=== PATIENT | female | born 1980 | race African-American/Black ===

== ENCOUNTER 2016-04-28 14:46 | Emergency (ER) | payer OTHER ==
[~2016-04-28] VITALS: Ht 170.2 cm; Wt 122.9 kg
[~2016-04-28 14:46] MED LIST: ALBUTEROL SULF8.5 GM INH; AUGMENTIN 875-1 EAC1 ORAL; CEPHALEXIN500 MG ORAL; CILOXAN 0.3% O1 DROP BOTH EYES; CLINDAMYCIN HC150 MG PO; GLUCOPHAGE500 MG PO; IBUPROFEN600 MG ORAL; IBUPROFEN600 MG PO; KEFLEX500 MG PO; LIDOCAINE VISCO20 ML PO; MOTRIN600 MG PO; NAPROXEN SODIU550 M1 ORAL; NORCO 5-325 TA1 EACH ORAL; NYSTATIN100000 UN1 ORAL; PENICILLIN V P500 MG ORAL; PREDNISONE20 MG ORAL; QVAR7.3 GM INH; TRAMADOL HCL50 MG ORAL; ULTRAM50 MG PO; ZOFRAN ODT4 MG ORAL
[2016-04-28] MEDS ORDERED: Ipratropium 0.02% Inh Soln 2.5ml UD HHN ONE (15:00)
[2016-04-28] MEDS ORDERED: Albuterol ud Inhalation HHN ONE (15:00)
[2016-04-28 15:30] VITALS: BP 120/77
[2016-04-28] MEDS ORDERED: ZITHROMAX250 MG ORAL (15:48)
[2016-04-28] MEDS ORDERED: ALBUTEROL2.5 MG/3 M INH (15:48)
[2016-04-28 15:55] VITALS: BP 120/77
--- NOTE | 2016-04-28 17:23 | Emergency Room Report ---
History of Present Illness General Chief Complaint: Flu Like Symptoms Present Illness HPI The patient is a 35-year-old female with a history of asthma presenting for shortness of breath, dry cough, and sore throat which began one week prior. The patient states that she has not taken any asthma medications recently because she has run out. The patient denies sick contacts or recent travel. The patient denies F, chills, hemoptysis, abd pain, rash, CP Allergies: Coded Allergies: METOPROLOL (Verified Allergy, Severe, rash, 11/18/13) TOMATO (Verified Allergy, Severe, Anaphylaxis, 12/25/11) IBUPROFEN (Verified Allergy, Intermediate, 02/15/16) Patient History Past Medical History: see triage record Pertinent Family History: none Reviewed Nursing Documentation: PMH: Agreed, PSxH: Agreed Nursing Documentation-PMH Hx Cardiac Problems: No Hx Hypertension: Yes Hx Pacemaker: No Hx Asthma: Yes Hx COPD: No Hx Diabetes: Yes Hx Cancer: No Hx Gastrointestinal Problems: No Hx Dialysis: No Hx Neurological Problems: Yes - bipolar Hx Cerebrovascular Accident: No Hx Seizures: No Review of Systems All Other Systems: negative except mentioned in HPI Physical Exam Vital Signs Date Time Temp Pulse Resp B/P Pulse Ox O2 Delivery O2 Flow Rate FiO2 04/28/16 14:51 97.9 97 20 120/77 98 Room Air Sp02 EP Interpretation: reviewed, normal General Appearance: no apparent distress, alert, GCS 15, non-toxic Head: normocephalic, atraumatic Eyes: bilateral eye PERRL, bilateral eye normal inspection ENT: hearing grossly normal, no angioedema, normal voice, tonsillar swelling, pharyngeal erythema, tonsillar exudate Neck: full range of motion, supple, supple/symm/no masses Respiratory: no respiratory distress, no retraction, no accessory muscle use, no wheezing, decreased breath sounds Cardiovascular #1: regular rate, rhythm, no edema Musculoskeletal: back normal, gait/station normal, normal range of motion, non- tender Neurologic: alert, oriented x3, responsive, motor strength/tone normal, sensory intact, speech normal Psychiatric: judgement/insight normal, memory normal, mood/affect normal, no suicidal/homicidal ideation Skin: normal color, no rash, warm/dry, well hydrated Lymphatic: no adenopathy Medical Decision Making PA Attestation Dr. Bassett is my supervising physician. Patient management was discussed with my supervising physician Diagnostic Impression: Primary Impression: Pharyngitis, acute Additional Impression: Asthma ER Course The patient is a 35-year-old female with a history of asthma presenting for shortness of breath, dry cough, and sore throat which began one week prior Differential diagnosis include but not limited to pharyngitis, sinusitis, AOM, asthma, bronchitis, PNA PE: Afebrile. No apparent distress HEENT: There is bilateral tonsillar erythema and edema. Uvula midline. Lungs: Decreased breath sounds bilaterally. No accessory muscle use. No respiratory distress. No wheezing The patient is given a breathing treatment and feels better. Lung sounds have increased. The patient will be discharged home with a prescription for azithromycin and a refill of medication for asthma. ER precautions are given Last Vital Signs Date Time Temp Pulse Resp B/P Pulse Ox O2 Delivery O2 Flow Rate FiO2 04/28/16 15:55 98.0 90 18 120/77 97 Room Air Status: improved Disposition: HOME, SELF-CARE Condition: Improved Scripts Albuterol Sulfate* (ALBUTEROL SULFATE HHN*) 2.5 Mg/3 Ml Vial.neb 3 ML INH Q6H Y for Shortness of Breath, #30 EA 0 Refills Prov: BRITTANY BARON 04/28/16 Azithromycin* (ZITHROMAX*) 250 Mg Tablet 250 MG ORAL DAILY, #6 TAB 0 Refills Take two tables once daily for 1 day, then one tablet once daily for 4 days. Prov: BRITTANY BARON 04/28/16 Patient Instructions: Asthma, Adult, Pharyngitis Additional Instructions: I discussed my findings with the patient. All questions and concerns have been answered. Treatment and medication compliance have been addressed. I advised the patient that they need to follow up with PMD in 3-5 days. Return to ED if pain remains or worsens, cough worsens or remains, you notice blood in your sputum, you notice wheezing, you experience a fever, or if needed for any reason. Patient verbalized understanding of discharge instructions. BRITTANY BARON Apr 28, 2016 17:23
== END 2016-04-28 15:55 | disposition home or self-care (01) ==
LOC: EMR 14:57
DX: J02.9 Acute pharyngitis, unspecified (principal); J45.909 Unspecified asthma, uncomplicated; Z88.8 Allergy status to other drugs, medicaments and biological substances; Z91.018 Allergy to other foods; I10 Essential (primary) hypertension; E11.9 Type 2 diabetes mellitus without complications; Z86.59 Personal history of other mental and behavioral disorders
CPT/HCPCS: 94640; 94664; 99284

== ENCOUNTER 2016-06-09 17:57 | Emergency (ER) | payer OTHER ==
[~2016-06-09] VITALS: Ht 170.2 cm; Wt 98.4 kg
[~2016-06-09 17:57] MED LIST changes: +ALBUTEROL2.5 MG/3 M INH; +ZITHROMAX250 MG ORAL
[2016-06-09 19:54] LABS: APPEARANCE,URINE CLEAR; KETONES,URINE NEGATIVE (NEGATIVE); LEUKOCYTE ESTERASE ,URINE 1+ (NEGATIVE); NITRITE,URINE NEGATIVE (NEGATIVE); PH,URINE 6.5 (4.5-8.0); PROTEIN,URINE NEGATIVE (NEGATIVE); UROBILINOGEN,URINE 1 MG/DL (0.0-1.0)
[2016-06-09 20:06] LABS: BACTERIA,URINE FEW /HPF; RBC,URINE 0-2 /HPF (0 - 2); SQUAMOUS EPITHELIAL CELL,UR FEW /LPF (NONE/OCC)
[2016-06-09] MEDS ORDERED: BACTRIM DS TAB1 EAC1 ORAL (20:17)
[2016-06-09] MEDS ORDERED: ALBUTEROL2.5 MG/3 M INH (20:17)
[2016-06-09] MEDS ORDERED: CEPHALEXIN500 MG ORAL (20:17)
[2016-06-09] MEDS ORDERED: PROAIR HFA8.5 GM INH (20:17)
[2016-06-09 20:30] VITALS: BP 130/90
--- NOTE | 2016-06-09 21:06 | Emergency Room Report ---
History of Present Illness General Chief Complaint: Female Urogenital Problems Source: Patient Present Illness [facility] The patient is a 35-year-old female presenting with dysuria and possible abscess. The patient states that she first noticed a bump which was tender this morning over the vagina. She also noticed dysuria and increased urinary frequency. Patient describes pain as a 10 out of 10 dull ache above the vagina. Pain does not radiate. Patient denies any other symptoms including N, V, F, chills, flank pain, hematuria, vaginal DC Allergies: Coded Allergies: METOPROLOL (Verified Allergy, Severe, rash, 11/18/13) TOMATO (Verified Allergy, Severe, Anaphylaxis, 12/25/11) IBUPROFEN (Verified Allergy, Intermediate, 02/15/16) Patient History Past Medical History: see triage record Pertinent Family History: none Last Menstrual Period: 05/12/16 Now: No Reviewed Nursing Documentation: PMH: Agreed, PSxH: Agreed Nursing Documentation-PMH Past Medical History: No History, Except For Hx Cardiac Problems: No Hx Hypertension: Yes Hx Pacemaker: No Hx Asthma: Yes Hx COPD: No Hx Diabetes: Yes Hx Cancer: No Hx Gastrointestinal Problems: No Hx Dialysis: No Hx Neurological Problems: Yes - bipolar Hx Cerebrovascular Accident: No Hx Seizures: No Review of Systems All Other Systems: negative except mentioned in HPI Physical Exam Vital Signs Date Time Temp Pulse Resp B/P Pulse Ox O2 Delivery O2 Flow Rate FiO2 06/09/16 18:28 98.2 90 16 130/90 100 Room Air Sp02 EP Interpretation: reviewed, normal General Appearance: no apparent distress, alert, GCS 15, non-toxic Head: normocephalic, atraumatic Eyes: bilateral eye PERRL, bilateral eye normal inspection ENT: hearing grossly normal, normal pharynx, no angioedema, normal voice Neck: full range of motion, supple/symm/no masses Respiratory: chest non-tender, lungs clear, normal breath sounds, no wheezing, speaking full sentences Gastrointestinal: normal bowel sounds, non tender, soft, non-distended, no guarding, no rebound Genitourinary: normal inspection, no CVA tenderness, ext genitalia/vag normal, other - 1cm indurated TTP lesion superior to vagina amongst pubic hair. Musculoskeletal: back normal, gait/station normal, normal range of motion, non- tender Neurologic: alert, oriented x3, responsive, motor strength/tone normal, sensory intact, speech normal Psychiatric: judgement/insight normal, memory normal, mood/affect normal, no suicidal/homicidal ideation Skin: normal color, no rash, warm/dry, well hydrated Lymphatic: no adenopathy Medical Decision Making PA Attestation Dr. Castillo is my supervising physician. Patient management was discussed with my supervising physician Diagnostic Impression: Primary Impression: Abscess Additional Impressions: Urinary tract infection Asthma ER Course The patient is a 35-year-old female presenting with dysuria and possible abscess. Differential diagnosis considered but not limited to: UTI, vaginitis, pyelonephritis, PID, abscess PE: Afebrile. No apparent distress Abdomen soft and nontender. Normal bowel sounds. No CVA tenderness. Genitourinary: External vagina normal. No edema. No discharge. There is a 1 cm indurated, raised lesion superior to vagina. Tender to palpation. Exam done with nurse in the room. Lungs are clear to auscultation bilaterally Urinalysis shows 1+ leukocyte esterase with white blood cells. The patient will be discharged home with a prescription for bactrim and keflex and is given refill of medication of albuterol Laboratory Tests Test 06/09/16 18:59 Urine Color Pale yellow Urine Appearance Clear Urine pH 6.5 (4.5-8.0) Urine Specific [place] 1.015 (1.005-1.035) Urine Protein Negative (NEGATIVE) Urine Glucose (UA) 4+ (NEGATIVE) H Urine Ketones Negative (NEGATIVE) Urine Occult Blood 1+ (NEGATIVE) H Urine Nitrite Negative (NEGATIVE) Urine Bilirubin Negative (NEGATIVE) Urine Urobilinogen 1 MG/DL (0.0-1.0) H Urine Leukocyte Esterase 1+ (NEGATIVE) H Urine RBC 0-2 /HPF (0 - 2) Urine WBC 2-4 /HPF (0 - 2) Urine Squamous Epithelial Cells Few /LPF (NONE/OCC) Urine Bacteria Few /HPF (NONE) Urine HCG, Qualitative Negative Lab Results Impression 1+ leukocyte esterase with 2-4 white blood cells. Negative Last Vital Signs Date Time Temp Pulse Resp B/P Pulse Ox O2 Delivery O2 Flow Rate FiO2 06/09/16 20:30 98.2 85 16 130/90 100 Room Air Status: improved Disposition: HOME, SELF-CARE Condition: Improved Scripts Albuterol Sulfate* (ALBUTEROL SULFATE HHN*) 2.5 Mg/3 Ml Vial.neb 3 ML INH Q6H Y for Shortness of Breath, #30 EA 0 Refills Prov: BRITTANY BARON P.A. 06/09/16 Albuterol Sulfate* (PROAIR HFA*) 8.5 Gm Hfa.aer.ad 2 PUFFS INH Q6H, #8.5 GM 0 Refills Prov: BRITTANY BARON.A. 06/09/16 Trimethoprim/Sulfamethoxazole 160/800* (BACTRIM DS TABLET*) 1 Each Tablet 1 TAB ORAL TWICE A DAY, #14 TAB Prov: BRITTANY BARON P.A. 06/09/16 Cephalexin* (KEFLEX*) 500 Mg Capsule 500 MG ORAL EVERY 6 HOURS, #28 CAP Prov: BRITTANY BARON P.A. 06/09/16 Patient Instructions: Abscess, Urinary Tract Infection Additional Instructions: I discussed my findings with the patient. All questions and concerns have been answered. Treatment and medication compliance have been addressed. I advised the patient that they need to follow up with PMD in 3-5 days. Return to ED if symptoms worsen, new symptoms arise, or if needed for any reason. Patient verbalized understanding of discharge instructions. BRITTANY BARON Jun 09, 2016 21:06
== END 2016-06-09 20:30 | disposition home or self-care (01) ==
LOC: EMR 18:42
DX: N76.0 Acute vaginitis (principal); N39.0 Urinary tract infection, site not specified; J45.909 Unspecified asthma, uncomplicated; R30.0 Dysuria; R35.0 Frequency of micturition; R10.2 Pelvic and perineal pain; Z88.8 Allergy status to other drugs, medicaments and biological substances; Z88.6 Allergy status to analgesic agent; Z91.018 Allergy to other foods; I10 Essential (primary) hypertension; E11.9 Type 2 diabetes mellitus without complications; F31.9 Bipolar disorder, unspecified
CPT/HCPCS: 81003; 81025; 99284

== ENCOUNTER 2016-08-29 20:51 | Emergency (ER) | payer OTHER ==
[~2016-08-29] VITALS: Ht 170.2 cm; Wt 88.5 kg
[~2016-08-29 20:51] MED LIST changes: +BACTRIM DS TAB1 EAC1 ORAL; +PROAIR HFA8.5 GM INH
[2016-08-29 21:00] VITALS: BP 120/75
[2016-08-29] MEDS ORDERED: NKM (21:02)
[2016-08-29] MEDS ORDERED: ALBUTEROL SULF8.5 GM INH (21:19)
[2016-08-29] MEDS ORDERED: ALBUTEROL2.5 MG/3 M HHN (21:19)
[2016-08-29] MEDS ORDERED: ACETAMINOPHEN-1 EAC1 ORAL (21:19)
[2016-08-29] MEDS ORDERED: ADVAIR 100-501 EACH INH (21:19)
--- NOTE | 2016-08-29 21:19 | Emergency Room Report ---
History of Present Illness General Chief Complaint: Dyspnea/Respdistress Source: Patient Present Illness HPI Is a 36-year-old female with a history of asthma. She presents with chief complaint needing refills her medication. She does not go to her primary care Dr. Said she doesn't have one. Said that she too busy working. Out of her asthma medication. No fever chills but no nausea vomiting. Also complaining of neck and back pain. Is a chronic issue. Pain is 10 out of 10. No nausea no vomiting. No fever chills or Allergies: Coded Allergies: METOPROLOL (Verified Allergy, Severe, rash, 11/18/13) TOMATO (Verified Allergy, Severe, Anaphylaxis, 12/25/11) IBUPROFEN (Verified Allergy, Intermediate, 02/15/16) GRASS POLLEN (Verified Allergy, Unknown, 08/29/16) Patient History Past Medical History: see triage record, old chart reviewed, asthma Past Surgical History: other Pertinent Family History: none Social History: Denies: smoking Last Menstrual Period: july 2016 Now: No Immunizations: other Reviewed Nursing Documentation: PMH: Agreed, PSxH: Agreed Nursing Documentation-PMH Hx Cardiac Problems: No Hx Hypertension: Yes Hx Pacemaker: No Hx Asthma: Yes Hx COPD: No Hx Diabetes: No Hx Cancer: No Hx Gastrointestinal Problems: No Hx Dialysis: No Hx Neurological Problems: Yes - bipolar Hx Cerebrovascular Accident: No Hx Seizures: No Review of Systems Eye: Denies: blurred vision, eye pain ENT: Denies: ear pain, nose congestion, throat swelling Respiratory: Denies: cough, shortness of breath Cardiovascular: Denies: chest pain, palpitations Gastrointestinal: Denies: abdominal pain, diarrhea, nausea, vomiting Musculoskeletal: Denies: back pain, joint pain Skin: Denies: rash Neurological: Denies: headache, numbness Endocrine: Denies: increased thirst, increased urine Hematologic/Lymphatic: Denies: easy bruising All Other Systems: negative except mentioned in HPI Physical Exam Vital Signs Date Time Temp Pulse Resp B/P Pulse Ox O2 Delivery O2 Flow Rate FiO2 08/29/16 20:57 98.1 87 16 120/75 95 vitals normal Sp02 EP Interpretation: reviewed, normal General Appearance: well appearing, no apparent distress, alert Head: normocephalic, atraumatic Eyes: bilateral eye EOMI, bilateral eye PERRL ENT: hearing grossly normal, normal pharynx Neck: full range of motion, supple, no meningismus Respiratory: chest non-tender, lungs clear, normal breath sounds Cardiovascular #1: regular rate, rhythm, no murmur Gastrointestinal: normal bowel sounds, non tender, no mass, no organomegaly, no bruit, non-distended Musculoskeletal: back normal, gait/station normal, normal range of motion Psychiatric: mood/affect normal Skin: warm/dry Medical Decision Making Diagnostic Impression: Primary Impression: Medication refill Additional Impression: Asthma Qualified Codes: J45.909 - Unspecified asthma, uncomplicated ER Course Patient presents with needing asthma medication refill. No wheezing here. We' ll discharge home. Last Vital Signs Date Time Temp Pulse Resp B/P Pulse Ox O2 Delivery O2 Flow Rate FiO2 08/29/16 20:57 98.1 87 16 120/75 95 Status: unchanged Disposition: HOME, SELF-CARE Condition: Stable Scripts Acetaminophen With Codeine (T#3) (TYLENOL #3 TAB*) Y Tab 1 TAB ORAL Q8H Y for For Pain, #15 TAB Prov: JOSE BARBOZA M.D. 08/29/16 Albuterol Sulfate* (ALBUTEROL SULFATE HHN*) 2.5 Mg/3 Ml Vial.neb 2.5 MG HHN Q4H Y for Shortness of Breath, #25 VIAL Prov: JOSE BARBOZA M.D. 08/29/16 Albuterol Sulfate* (ALBUTEROL SULFATE MDI*) 8.5 Gm Hfa.aer.ad 2 PUFF INH Q4H Y for cough/wheezing, #1 EA 0 Refills Prov: JOSE BARBOZA M.D. 08/29/16 Fluticasone/Salmeterol (Advair 100-50 Diskus) 1 Each Blst.w.dev 1 PUFF INH TWICE A DAY, #1 EA Prov: JOSE BARBOZA M.D. 08/29/16 Additional Instructions: Follow up with your doctor or medical clinic in a week. Return if worse. JOSE BARBOZA M.D. August 29, 2016 21:19
[2016-08-29 21:25] VITALS: BP 120/75
== END 2016-08-29 21:25 | disposition home or self-care (01) ==
LOC: EMR 21:12
DX: J45.909 Unspecified asthma, uncomplicated (principal); Z88.8 Allergy status to other drugs, medicaments and biological substances; Z88.6 Allergy status to analgesic agent; Z91.018 Allergy to other foods; I10 Essential (primary) hypertension; F31.9 Bipolar disorder, unspecified
CPT/HCPCS: 99284

== ENCOUNTER 2016-11-16 09:15 | Emergency (ER) | payer MEDICAID, OTHER ==
[~2016-11-16] VITALS: Ht 170.2 cm; Wt 112.0 kg
[~2016-11-16 09:15] MED LIST changes: +ACETAMINOPHEN-1 EAC1 ORAL; +ADVAIR 100-501 EACH INH; +ALBUTEROL2.5 MG/3 M HHN; +NKM
[2016-11-16] MEDS ORDERED: NORCO 5-325 TA1 EACH ORAL (09:49)
[2016-11-16] MEDS ORDERED: KEFLEX500 MG ORAL (09:49)
[2016-11-16] MEDS ORDERED: BACTRIM DS TAB1 EAC1 ORAL (09:49)
[2016-11-16 09:55] VITALS: BP 127/78
--- NOTE | 2016-11-16 10:01 | Emergency Room Report ---
History of Present Illness General Chief Complaint: Skin Rash/Abscess Source: Patient Present Illness HPI Patient presents with complaints of possible insect bite to the left upper shoulder This happened this morning Patient woke up with the discomfort there was some redness as well Pain is worse with touch Rates the pain as 8/10 Denies any fevers or chills denies any discomfort with the joint of the shoulder Denies any neuropathy distally Denies any neck pain or photophobia Allergies: Coded Allergies: METOPROLOL (Verified Allergy, Severe, rash, 11/18/13) TOMATO (Verified Allergy, Severe, Anaphylaxis, 12/25/11) IBUPROFEN (Verified Allergy, Intermediate, 02/15/16) GRASS POLLEN (Verified Allergy, Unknown, 08/29/16) Patient History Past Medical History: see triage record Pertinent Family History: none Reviewed Nursing Documentation: PMH: Agreed, PSxH: Agreed Nursing Documentation-PMH Hx Cardiac Problems: No Hx Hypertension: Yes Hx Pacemaker: No Hx Asthma: Yes Hx COPD: No Hx Diabetes: No Hx Cancer: No Hx Gastrointestinal Problems: No Hx Dialysis: No Hx Neurological Problems: Yes - bipolar Hx Cerebrovascular Accident: No Hx Seizures: No Review of Systems All Other Systems: negative except mentioned in HPI Physical Exam Vital Signs Date Time Temp Pulse Resp B/P Pulse Ox O2 Delivery O2 Flow Rate FiO2 11/16/16 09:18 97.5 72 20 118/81 100 Room Air Sp02 EP Interpretation: reviewed, normal General Appearance: well appearing, no apparent distress Head: normocephalic, atraumatic Eyes: bilateral eye EOMI, bilateral eye PERRL ENT: normal pharynx, no angioedema Neck: supple Respiratory: lungs clear Cardiovascular #1: regular rate, rhythm, no edema Musculoskeletal: normal inspection, back normal Neurologic: alert, oriented x3, responsive Skin: other - Small area approximately half a half a centimeter left upper chest just medial to the shoulder of mild erythema. No obvious fluctuance, no obvious streaking Lymphatic: no adenopathy Medical Decision Making Diagnostic Impression: Primary Impression: insect bite Additional Impression: cellulitis ER Course Patient's findings appear to be likely in line with folliculitis/insect bite with likely early signs of infection No obvious areas of abscess formation In the presentation is fairly early in the pathology Patient is placed on oral antibiotics initially Requesting [place] for pain Patient CURES does reveal previous [place] medication from dentist, and here However given the patient's discomfort she was prescribed medicine for close outpatient followup Patient is also allergic to Motrin Last Vital Signs Date Time Temp Pulse Resp B/P Pulse Ox O2 Delivery O2 Flow Rate FiO2 11/16/16 09:55 76 18 127/78 97 Room Air 11/16/16 09:55 98.0 Status: unchanged Disposition: HOME, SELF-CARE Condition: Stable Scripts Hydrocodone Bit/Acetaminophen 5-325* (NORCO 5-325*) 1 Each Tablet 1 TAB ORAL Q12HR Y for For Pain, #10 TAB 0 Refills Prov: IBRAHIMA SILVA D.O. 11/16/16 Trimethoprim/Sulfamethoxazole 160/800* (BACTRIM DS TABLET*) 1 Each Tablet 1 TAB ORAL Q12H, #14 TAB 0 Refills Prov: IBRAHIMA SILVA D.O. 11/16/16 Cephalexin* (KEFLEX*) 500 Mg Capsule 500 MG ORAL Q6H, #28 CAP 0 Refills Prov: IBRAHIMA SILVA D.O. 11/16/16 Referrals: [employer] [facility],REFERRIN Patient Instructions: Cellulitis, [id number], Insect Bite, [id number] Additional Instructions: Patient is provided with the discharge instructions notified to follow up with primary doctor in the next 2-3 days otherwise return to the er with any worsening symptoms. Please note that this report is being documented using [employer] ([employer]) technology. This can lead to erroneous entry secondary to incorrect interpretation by the dictating instrument. IBRAHIMA SILVA D.O. Nov 16, 2016 10:01
== END 2016-11-16 10:00 | disposition home or self-care (01) ==
LOC: EMR 09:45
DX: S40.262A Insect bite (nonvenomous) of left shoulder, initial encounter (principal); W57.XXXA Bitten or stung by nonvenomous insect and other nonvenomous arthropods, initial encounter; Y93.9 Activity, unspecified; Y92.9 Unspecified place or not applicable; L03.114 Cellulitis of left upper limb; I10 Essential (primary) hypertension; Z88.6 Allergy status to analgesic agent; Z91.018 Allergy to other foods
CPT/HCPCS: 99284

== ENCOUNTER 2016-12-04 20:36 | Emergency (ER) | payer MEDICAID ==
[~2016-12-04] VITALS: Ht 170.2 cm; Wt 122.5 kg
[~2016-12-04 20:36] MED LIST changes: +KEFLEX500 MG ORAL
[2016-12-04] MEDS ORDERED: Famotidine 20 MG/ 2ML VIAL IVP ONE (20:45)
[2016-12-04] MEDS ORDERED: Morphine Sulfate 4mg/ml Inj IVP ONE (20:45)
[2016-12-04 21:00] VITALS: BP 143/98
[2016-12-04 21:41] LABS: ALANINE AMINOTRANSFERASE 20 U/L (3-33); ALBUMIN/GLOBULIN RATIO 0.9 (1.0-2.7); ANION GAP 12 (5-15); ASPARTATE AMINO TRANSFERASE 15 U/L (5-40); CALCIUM 9.3 mg/dL (8.6-10.2); CARBON DIOXIDE 29 mEQ/L (20-30); CHLORIDE 100 mEQ/L (98-107); CREATININE 0.9 mg/dL (0.5-0.9); GLOMERULAR FILTRATION RATE > 60 mL/min (>60); HEMOLYSIS 3; LIPASE 27 U/L (< 60); POTASSIUM 4.2 mEQ/L (3.4-4.9); SODIUM 141 mEQ/L (135-145); TOTAL PROTEIN 8.1 g/dL (6.6-8.7)
[2016-12-04 21:43] LABS: BASOPHILS % (AUTO) 1.8 % (0.0-2.0); EOSINOPHILS % (AUTO) 0.2 % (0.0-3.0); LYMPHOCYTES % (AUTO) 19.5 % (20.0-45.0); MEAN CORPUSCULAR HEMOGLOBIN 24.3 PG (27.0-31.0); MEAN CORPUSCULAR HGB CONC 31.3 G/DL (32.0-36.0); MEAN CORPUSCULAR VOLUME 78 FL (80-99); MEAN PLATELET VOLUME 12.2 FL (6.5-10.1); MONOCYTES % (AUTO) 5.8 % (1.0-10.0); NEUTROPHILS % (AUTO) 72.7 % (45.0-75.0); PLATELET COUNT 194 K/UL (150-450); RED BLOOD COUNT 6.24 M/UL (4.20-5.40); RED CELL DISTRIBUTION WIDTH 12.7 % (11.6-14.8); WHITE BLOOD COUNT 11.8 K/UL (4.8-10.8)
[2016-12-04 21:44] LABS: KETONES,URINE 1+ (NEGATIVE); LEUKOCYTE ESTERASE ,URINE 3+ (NEGATIVE); NITRITE,URINE POSITIVE (NEGATIVE); PH,URINE 6 (4.5-8.0); PROTEIN,URINE 3+ (NEGATIVE); UROBILINOGEN,URINE NORMAL MG/DL (0.0-1.0)
[2016-12-04 21:46] LABS: APPEARANCE,URINE SLIGHTLY CLOUDY
[2016-12-04 21:57] LABS: AMORPHOUS SEDIMENT,UR FEW /LPF; BACTERIA,URINE MODERATE /HPF; SQUAMOUS EPITHELIAL CELL,UR MODERATE /LPF (NONE/OCC)
[2016-12-04] MEDS ORDERED: Hydromorphone 0.5mg/0.5ml inj IVP ONE (22:15)
[2016-12-04 23:05] VITALS: BP 138/87
--- NOTE | 2016-12-04 23:12 | Emergency Room Report ---
History of Present Illness General Chief Complaint: Abdominal Pain Source: Patient, EMS (Madan Skinner M.D.) Present Illness HPI Patient presents with abdominal pain right flank pain for 2 days. She's been vomiting. Initially was food that was mild and then bile next was some red specks what she thinks might be blood. She's also had diarrhea which is orange in color. She believes this is food poisoning from [place] food that she ate. She's never had kidney stones. She's not had previous surgery in the past. Pain is 10/10 R flank radiating to RLQ. No fevers, but feverish. No URI sy. No dysuria. No rashes. No wheezing. Asthma, HTN and Bipolar (Madan Skinner M.D.) Allergies: Coded Allergies: METOPROLOL (Verified Allergy, Severe, rash, 11/18/13) TOMATO (Verified Allergy, Severe, Anaphylaxis, 12/25/11) IBUPROFEN (Verified Allergy, Intermediate, 02/15/16) GRASS POLLEN (Verified Allergy, Unknown, 08/29/16) Patient History Past Medical History: see triage record Social History: Denies: smoking Social History Narrative with friend Last Menstrual Period: LAST MONTH Reviewed Nursing Documentation: PMH: Agreed, PSxH: Agreed (Madan Skinner M.D.) Nursing Documentation-PMH Hx Cardiac Problems: No Hx Hypertension: Yes Hx Pacemaker: No Hx Asthma: Yes Hx COPD: No Hx Diabetes: Yes Hx Cancer: No Hx Gastrointestinal Problems: No Hx Dialysis: No History Of Psychiatric Problem: Yes Hx Neurological Problems: Yes - bipolar Hx Cerebrovascular Accident: No Hx Seizures: No (Madan Skinner M.D.) Review of Systems All Other Systems: negative except mentioned in HPI (Madan Skinner M.D.) Physical Exam Vital Signs Date Time Temp Pulse Resp B/P (MAP) Pulse Ox O2 Delivery O2 Flow Rate FiO2 12/04/16 20:41 98.1 94 18 148/90 98 Room Air Sp02 EP Interpretation: reviewed, normal General Appearance: well appearing, no apparent distress, GCS 15 Head: normocephalic Eyes: bilateral eye normal inspection, bilateral eye PERRL ENT: moist mucus membranes Neck: supple Respiratory: lungs clear, normal breath sounds Cardiovascular #1: regular rate, rhythm Cardiovascular #2: 2+ radial (R) Gastrointestinal: normal inspection, normal bowel sounds, no mass, non- distended, no rebound, guarding - minimal epigastric and R flank anteriorly, tenderness Genitourinary: no CVA tenderness Musculoskeletal: back normal, gait/station normal, normal range of motion Neurologic: alert, oriented x3, grossly normal Psychiatric: other - slightly glib Skin: normal inspection, warm/dry, other - hyperpigmentation face (Madan Skinner M.D.) Medical Decision Making Diagnostic Impression: Primary Impression: Abdominal pain Qualified Codes: R10.84 - Generalized abdominal pain Additional Impressions: Flank pain UTI (urinary tract infection) Qualified Codes: N30.00 - Acute cystitis without hematuria ER Course Patient presents with flank pain. Differential includes arthritis, renal stone , gastroenteritis, appendicitis amongst others. She's obese and exam is difficult. She states she's been vomiting blood. Emergent evaluation is undertaken with labs. Patient given IV hydration and analgesia. Labs are significant for mildly elevated white count and some pyuria. Patient is covered with antibiotics. On repeat exam she states that the 4 mg of morphine didn't touch her. Given a dose of Dilaudid and a CT of the abdomen is ordered. Patient sleeping after dilaudid. The patient signed out to Dr. Barboza. Laboratory Tests Test 12/04/16 21:00 White Blood Count 11.8 K/UL (4.8-10.8) H Red Blood Count 6.24 M/UL (4.20-5.40) H Hemoglobin 15.2 G/DL (12.0-16.0) Hematocrit 48.4 % (37.0-47.0) H Mean Corpuscular Volume 78 FL (80-99) L Mean Corpuscular Hemoglobin 24.3 PG (27.0-31.0) L Mean Corpuscular Hemoglobin Concent 31.3 G/DL (32.0-36.0) L Red Cell Distribution Width 12.7 % (11.6-14.8) Platelet Count 194 K/UL (150-450) Mean Platelet Volume 12.2 FL (6.5-10.1) H Neutrophils (%) (Auto) 72.7 % (45.0-75.0) Lymphocytes (%) (Auto) 19.5 % (20.0-45.0) L Monocytes (%) (Auto) 5.8 % (1.0-10.0) Eosinophils (%) (Auto) 0.2 % (0.0-3.0) Basophils (%) (Auto) 1.8 % (0.0-2.0) Urine Color Pale yellow Urine Appearance Slightly cloudy Urine pH 6 (4.5-8.0) Urine Specific [place] 1.015 (1.005-1.035) Urine Protein 3+ (NEGATIVE) H Urine Glucose (UA) Negative (NEGATIVE) Urine Ketones 1+ (NEGATIVE) H Urine Occult Blood 5+ (NEGATIVE) H Urine Nitrite Positive (NEGATIVE) H Urine Bilirubin Negative (NEGATIVE) Urine Urobilinogen Normal MG/DL (0.0-1.0) Urine Leukocyte Esterase 3+ (NEGATIVE) H Urine RBC 10-15 /HPF (0 - 2) H Urine WBC 5-10 /HPF (0 - 2) H Urine Squamous Epithelial Cells Moderate /LPF (NONE/OCC) H Urine Amorphous Sediment Few /LPF (NONE) H Urine Bacteria Moderate /HPF (NONE) H Urine HCG, Qualitative Negative Sodium Level 141 mEQ/L (135-145) Potassium Level 4.2 mEQ/L (3.4-4.9) Chloride Level 100 mEQ/L (98-107) Carbon Dioxide Level 29 mEQ/L (20-30) Anion Gap 12 (5-15) Blood Urea Nitrogen 12 mg/dL (7-23) Creatinine 0.9 mg/dL (0.5-0.9) Estimate Glomerular Filtration Rate > 60 mL/min (>60) Glucose Level 169 mg/dL (74-106) H Calcium Level 9.3 mg/dL (8.6-10.2) Total Bilirubin 0.7 mg/dL (0.0-1.2) Aspartate Amino Transferase (AST) 15 U/L (5-40) Alanine Aminotransferase (ALT) 20 U/L (3-33) Alkaline Phosphatase 74 U/L (35-104) Total Protein 8.1 g/dL (6.6-8.7) Albumin 4.0 g/dL (3.5-5.2) Globulin 4.1 g/dL Albumin/Globulin Ratio 0.9 (1.0-2.7) L Lipase 27 U/L (< 60) (Madan Skinner M.D.) ER Course Patient signed out to me. CT scan pending. CT unremarkable. We'll discharge home. (JOSE BARBOZA M.D.) CT/MRI/US Diagnostic Results CT/MRI/US Diagnostic Results : Imaging Test Ordered: CT a/p Impression CT ABDOMEN & PELVIS: Compared to CT abdomen and pelvis 09/27/2011 Abnormal wall thickening and enhancement of the bilateral renal pelves, bilateral ureters, and urinary bladder, with adjacent edema, likely due to urinary tract infection. Mild bilateral hydronephrosis and hydroureter is likely related. No evidence of radiopaque obstructing ureteral calculus. Multiple small retroperitoneal and pelvic lymph nodes. There are a few small scattered pulmonary nodules. Small pericardial effusion measuring approximately 6 millimeters in thickness. Hepatic steatosis. Moderate hepatomegaly. No CT evidence of acute cholecystitis or acute pancreatitis. No bowel obstruction. Unremarkable appendix. No free fluid. No free air. Radiologist: Mallorie Singh M.D. (JOSE BARBOZA M.D.) Last Vital Signs Date Time Temp Pulse Resp B/P (MAP) Pulse Ox O2 Delivery O2 Flow Rate FiO2 12/05/16 02:15 98.2 87 18 140/87 100 Room Air Status: improved (Madan Skinner M.D.) Status: improved (JOSE BARBOZA M.D.) Disposition: HOME, SELF-CARE Condition: Improved Scripts Nitrofurantoin Monohyd/M-Cryst* (MACROBID 100 MG*) 100 Mg Capsule 100 MG ORAL EVERY 12 HOURS, #14 CAP Prov: Madan Skinner M.D. 12/04/16 Tramadol Hcl* (ULTRAM*) 50 Mg Tablet 50 MG ORAL Q6H Y for For Pain, #12 TAB 0 Refills Prov: Madan Skinner M.D. 12/04/16 Ondansetron Odt* (ZOFRAN ODT*) 4 Mg Tab.rapdis 4 MG ORAL Q8H Y for Nausea & Vomiting, #6 TAB 1 Refill Prov: Madan Skinner M.D. 12/04/16 Famotidine (PEPCID) 20 Mg Tablet 20 MG ORAL DAILY, #14 TAB 0 Refills Prov: Madan Skinner M.D. 12/04/16 Referrals: [facility],REFERRING (PCP) Madan Skinner M.D. Dec 04, 2016 23:12 JOSE BARBOZA M.D. Dec 05, 2016 02:04
[2016-12-04] MEDS ORDERED: PEPCID20 MG ORAL (23:16)
[2016-12-04] MEDS ORDERED: ZOFRAN ODT4 MG ORAL (23:16)
[2016-12-04] MEDS ORDERED: TRAMADOL HCL50 MG ORAL (23:16)
[2016-12-04] MEDS ORDERED: NITROFURANTOIN100 M2 ORAL (23:17)
[2016-12-05 01:10] VITALS: BP 139/84
[2016-12-05 02:00] VITALS: BP 140/87
[2016-12-05 02:15] VITALS: BP 140/87
--- NOTE | 2016-12-05 09:57 | Diagnostic Imaging Report ---
Indication: Abdominal pain Technique: Continuous helical transaxial imaging of the abdomen and pelvis was obtained from the lung bases to the pubic symphysis during intravenous contrast administration. Coronal 2-D reformats were also obtained. Study obtained in a Siemens sensation [address] Total Dose length Product (DLP): [address] Dose Index Volume (CTDIvol): 20 mGy Comparison: 6.712 Findings: There is a small hiatal hernia. Small pericardial effusion noted. The liver is prominent and hypodense. There is perinephric and periureteral stranding and mild bilateral hydronephrosis is noted. Consider pyelonephritis. No definite renal stones obstructing or nonobstructing. Gallbladder is unremarkable. The pancreas and spleen appear unremarkable. There is no adrenal mass. Small nodes are seen in the retroperitoneum. The bladder wall is moderately thick. Uterus is unremarkable. Normal appendix noted. Impression: Bilateral hydronephrosis/perinephric stranding without evidence of an obstructing stone. Similar thickening of the urinary bladder wall noted. Findings could be on the basis of cystitis and toshia nephritis/pyelitis. Please correlate clinically. Fatty liver with hepatomegaly Hiatal hernia Small pericardial effusion Normal appendix [facility] has communicated the preliminary results to the Emergency Department. Their findings are largely concordant with this report. The CT scanner at [facility] is accredited by the [employer] and the scans are performed using dose optimization techniques as appropriate to a performed exam including Automatic Exposure control.
== END 2016-12-05 02:15 | disposition home or self-care (01) ==
LOC: EDUNIT# 20:36 → EDBD 20:36 → EMR 20:47
DX: R10.84 Generalized abdominal pain (principal); N30.00 Acute cystitis without hematuria; R19.7 Diarrhea, unspecified; I10 Essential (primary) hypertension; Z88.6 Allergy status to analgesic agent; Z88.8 Allergy status to other drugs, medicaments and biological substances; E11.9 Type 2 diabetes mellitus without complications; I31.3 Pericardial effusion (noninflammatory); K44.9 Diaphragmatic hernia without obstruction or gangrene; K76.0 Fatty (change of) liver, not elsewhere classified; N13.30 Unspecified hydronephrosis
CPT/HCPCS: 36415; 74177; 80053; 81003; 81025; 83690; 85025; 87086; 87181; 96361; 96374; 96375; 99284; J1170; J2270; J2405; Q9967; S0028

== ENCOUNTER 2016-12-06 00:36 | Inpatient (IN) | payer MEDICAID ==
[2016-12-06] VITALS (8 sets, daily range): BP systolic 119–155; BP diastolic 78–108
[~2016-12-06] VITALS: Ht 170.2 cm; Wt 117.9 kg
[~2016-12-06 00:36] MED LIST changes: +NITROFURANTOIN100 M2 ORAL; +PEPCID20 MG ORAL
[2016-12-06] MEDS ORDERED: cefTRIAXone 1 GM in NS 55 ML IVPB ONE (00:45)
[2016-12-06 01:42] LABS: BASOPHILS % (AUTO) 1.4 % (0.0-2.0); EOSINOPHILS % (AUTO) 0.6 % (0.0-3.0); LYMPHOCYTES % (AUTO) 25.4 % (20.0-45.0); MEAN CORPUSCULAR HEMOGLOBIN 23.7 PG (27.0-31.0); MEAN CORPUSCULAR HGB CONC 30.2 G/DL (32.0-36.0); MEAN CORPUSCULAR VOLUME 78 FL (80-99); MEAN PLATELET VOLUME 12.2 FL (6.5-10.1); NEUTROPHILS % (AUTO) 64.5 % (45.0-75.0); PLATELET COUNT 191 K/UL (150-450); RED BLOOD COUNT 6.22 M/UL (4.20-5.40); RED CELL DISTRIBUTION WIDTH 12.8 % (11.6-14.8); WHITE BLOOD COUNT 9.7 K/UL (4.8-10.8)
[2016-12-06] MEDS ORDERED: HYDROmorphone 1 MG, DiphenhydrAMINE 25 MG in NS 55 ML IV ONE (01:45)
[2016-12-06] MEDS ORDERED: LORazepam Inj 2mg/ml 1ml IV ONE (01:45)
[2016-12-06 01:56] LABS: ALANINE AMINOTRANSFERASE 17 U/L (3-33); ALBUMIN/GLOBULIN RATIO 0.9 (1.0-2.7); ANION GAP 10 (5-15); ASPARTATE AMINO TRANSFERASE 13 U/L (5-40); CALCIUM 9.1 mg/dL (8.6-10.2); CARBON DIOXIDE 29 mEQ/L (20-30); CHLORIDE 95 mEQ/L (98-107); CREATININE 0.9 mg/dL (0.5-0.9); GLOMERULAR FILTRATION RATE > 60 mL/min (>60); HEMOLYSIS 0; POTASSIUM 3.9 mEQ/L (3.4-4.9); SODIUM 134 mEQ/L (135-145); TOTAL PROTEIN 8.1 g/dL (6.6-8.7)
[2016-12-06] MEDS ORDERED: DiphenhydrAMINE 50mg/ml Inj ONE (01:59)
[2016-12-06] MEDS ORDERED: HYDROmorphone 1mg/ml Carpuject ONE (01:59)
--- NOTE | 2016-12-06 05:31 | Emergency Room Report ---
History of Present Illness General Chief Complaint: Abdominal Pain Source: Patient Present Illness HPI Patient presents with complaints of diffuse abdominal pain nausea vomiting Patient appears to have been here yesterday with UTI Patient a CAT scan imaging yesterday which did not show any acute pathology Patient reports 01/09 pain diffuse Denies any flank pain Denies any fevers or chills Denies any diarrhea she has had nausea and vomiting however Allergies: Coded Allergies: METOPROLOL (Verified Allergy, Severe, rash, 11/18/13) TOMATO (Verified Allergy, Severe, Anaphylaxis, 12/25/11) IBUPROFEN (Verified Allergy, Intermediate, 02/15/16) GRASS POLLEN (Verified Allergy, Unknown, 08/29/16) Patient History Past Medical History: see triage record Pertinent Family History: none Last Menstrual Period: last month Reviewed Nursing Documentation: PMH: Agreed, PSxH: Agreed Nursing Documentation-PMH Hx Cardiac Problems: No Hx Hypertension: Yes Hx Pacemaker: No Hx Asthma: Yes Hx COPD: No Hx Diabetes: Yes Hx Cancer: No Hx Gastrointestinal Problems: No Hx Dialysis: No Hx Neurological Problems: Yes - bipolar Hx Cerebrovascular Accident: No Hx Seizures: No Review of Systems All Other Systems: negative except mentioned in HPI Physical Exam Vital Signs Date Time Temp Pulse Resp B/P (MAP) Pulse Ox O2 Delivery O2 Flow Rate FiO2 12/06/16 00:44 98.2 87 18 155/108 96 Room Air Sp02 EP Interpretation: reviewed, normal General Appearance: mild distress - actively nauseated and in pain Head: normocephalic, atraumatic Eyes: bilateral eye PERRL, bilateral eye EOMI ENT: hearing grossly normal, normal pharynx, TMs + canals normal, uvula midline Neck: full range of motion, supple, no meningismus, no bony tend Respiratory: lungs clear, normal breath sounds, no rhonchi, no respiratory distress, no retraction, no accessory muscle use Cardiovascular #1: normal peripheral pulses, regular rate, rhythm, no edema, no gallop, no JVD, no murmur Gastrointestinal: normal bowel sounds, non tender, soft, no mass, no organomegaly, non-distended, no guarding, no hernia, no pulsatile mass, no rebound Genitourinary: no CVA tenderness Musculoskeletal: normal inspection Neurologic: oriented x3, responsive, passenger train braker III-XII nml as tested, motor strength/ tone normal, sensory intact Psychiatric: mood/affect normal Skin: normal color, no rash, warm/dry, palpation normal Lymphatic: normal inspection, no adenopathy Medical Decision Making Diagnostic Impression: Primary Impression: Pyelonephritis ER Course With the patient's history and examination, multiple differentials considered, including but not limited to , ectopic , ovarian torsion, gastritis, cholecystitis, pancreatitis, appendicitis Patient's CAT scan from yesterday Therefore one was not repeated today however there was evidence of stranding around the kidneys and question of possible pyelonephritis Patient was given IV antibiotics here Blood work remaining stable however given the patient's failed outpatient therapy And the patient's discomfort she was brought in for admission for further care Labs Test 12/06/16 01:00 White Blood Count 9.7 K/UL (4.8-10.8) Red Blood Count 6.22 M/UL (4.20-5.40) Hemoglobin 14.8 G/DL (12.0-16.0) Hematocrit 48.8 % (37.0-47.0) Mean Corpuscular Volume 78 FL (80-99) Mean Corpuscular Hemoglobin 23.7 PG (27.0-31.0) Mean Corpuscular Hemoglobin Concent 30.2 G/DL (32.0-36.0) Red Cell Distribution Width 12.8 % (11.6-14.8) Platelet Count 191 K/UL (150-450) Mean Platelet Volume 12.2 FL (6.5-10.1) Neutrophils (%) (Auto) 64.5 % (45.0-75.0) Lymphocytes (%) (Auto) 25.4 % (20.0-45.0) Monocytes (%) (Auto) 8.0 % (1.0-10.0) Eosinophils (%) (Auto) 0.6 % (0.0-3.0) Basophils (%) (Auto) 1.4 % (0.0-2.0) Sodium Level 134 mEQ/L (135-145) Potassium Level 3.9 mEQ/L (3.4-4.9) Chloride Level 95 mEQ/L (98-107) Carbon Dioxide Level 29 mEQ/L (20-30) Anion Gap 10 (5-15) Blood Urea Nitrogen 13 mg/dL (7-23) Creatinine 0.9 mg/dL (0.5-0.9) Estimat Glomerular Filtration Rate > 60 mL/min (>60) Glucose Level 164 mg/dL (74-106) Calcium Level 9.1 mg/dL (8.6-10.2) Total Bilirubin 0.5 mg/dL (0.0-1.2) Aspartate Amino Transf (AST/SGOT) 13 U/L (5-40) Alanine Aminotransferase (ALT/SGPT) 17 U/L (3-33) Alkaline Phosphatase 70 U/L (35-104) Total Protein 8.1 g/dL (6.6-8.7) Albumin 4.0 g/dL (3.5-5.2) Globulin 4.1 g/dL Albumin/Globulin Ratio 0.9 (1.0-2.7) CT/MRI/US Diagnostic Results CT/MRI/US Diagnostic Results : Impression CT abdomen pelvis 12/04/2016:Impression: Bilateral hydronephrosis/perinephric stranding without evidence of an obstructing stone. Similar thickening of the urinary bladder wall noted. Findings could be on the basis of cystitis and toshia nephritis/pyelitis. Please correlate clinically. Fatty liver with hepatomegaly Hiatal hernia Small pericardial effusion Normal appendix Last Vital Signs Date Time Temp Pulse Resp B/P (MAP) Pulse Ox O2 Delivery O2 Flow Rate FiO2 12/06/16 05:00 104 20 119/78 96 Room Air 12/06/16 03:39 98.0 Status: improved Disposition: ADMITTED INPATIENT Condition: Serious Referrals: [facility],REFERRING (PCP) IBRAHIMA SILVA D.O. Dec 06, 2016 05:31
[2016-12-06 11:00] LABS: APPEARANCE,URINE CLEAR; KETONES,URINE NEGATIVE (NEGATIVE); LEUKOCYTE ESTERASE ,URINE 1+ (NEGATIVE); NITRITE,URINE NEGATIVE (NEGATIVE); PH,URINE 5 (4.5-8.0); PROTEIN,URINE 1+ (NEGATIVE); UROBILINOGEN,URINE NORMAL MG/DL (0.0-1.0)
[2016-12-06 11:20] LABS: BACTERIA,URINE OCCASIONAL /HPF; SQUAMOUS EPITHELIAL CELL,UR FEW /LPF (NONE/OCC)
[2016-12-06] MEDS ORDERED: Milk of Magnesia 30ml Ud ORAL PRN (12:30)
[2016-12-06] MEDS ORDERED: Zolpidem 5mg tab ORAL PRN (12:30)
[2016-12-06] MEDS ORDERED: Albuterol 90mcg Inhaler 8gm INH PRN (12:30)
[2016-12-06] MEDS ORDERED: Miralax 17gm pkt ORAL PRN (12:30)
[2016-12-06] MEDS ORDERED: Mylanta II UD 30ml ORAL PRN (12:30)
--- NOTE | 2016-12-06 12:38 | History and Physical ---
History of Present Illness General Date patient seen: Dec 06, 2016 Time patient seen: 12:38 Reason for Hospitalization: Abdominal Pain Present Illness HPI 36y/o female with pmh of asthma, DM2 who presents with abd pain and nausea/ vomiting. Pt was seen in ED yesterday w/ similar symptoms and diagnosed w/ a UTi and discharged home w/ PO antibiotics. Pt continued to have pain, nausea/ vomiting prompting her to come back to ED. Abd pain described as diffuse and sharp. Also w/ b/l flank pain. Also c/o fevers/chills. Denies chest pain, SOB, d /c. In ED, pt had CT a/p showed "blateral hydronephrosis/perinephric stranding without evidence of an obstructing stone. Similar thickening of the urinary bladder wall noted. Findings could be on the basis of cystitis and toshia nephritis/pyelitis." Pt was given ceftriaxone IV. Allergies: Coded Allergies: METOPROLOL (Verified Allergy, Severe, rash, 11/18/13) TOMATO (Verified Allergy, Severe, Anaphylaxis, 12/25/11) IBUPROFEN (Verified Allergy, Intermediate, 02/15/16) GRASS POLLEN (Verified Allergy, Unknown, 08/29/16) Medication History Scheduled Cephalexin* (Keflex*), 500 MG ORAL Q6H Famotidine (Pepcid), 20 MG ORAL DAILY Fluticasone/Salmeterol (Advair 100-50 Diskus), 1 PUFF INH TWICE A DAY Metformin Hcl* (Glucophage*), 500 MG PO DAILY, (Reported) Nitrofurantoin Monohyd/M-Cryst* (Macrobid 100 Mg*), 100 MG ORAL EVERY 12 HOURS Trimethoprim/Sulfamethoxazole 160/800* (Bactrim Ds Tablet*), 1 TAB ORAL Q12H Scheduled PRN Acetaminophen With Codeine (T#3) (Tylenol #3 Tab*), 1 TAB ORAL Q8H PRN for For Pain Albuterol Sulfate* (Albuterol Sulfate Mdi*), 2 PUFF INH Q4H PRN for cough/ wheezing Albuterol Sulfate* (Albuterol Sulfate Hhn*), 2.5 MG HHN Q4H PRN for Shortness of Breath Hydrocodone Bit/Acetaminophen 5-325* ([place] 5-325*), 1 TAB ORAL Q12HR PRN for For Pain Ondansetron Odt* (Zofran Odt*), 4 MG ORAL Q8H PRN for Nausea & Vomiting Tramadol Hcl* (Ultram*), 50 MG ORAL Q6H PRN for For Pain Patient History Healthcare decision maker Resuscitation status Advanced Directive on File Past Medical/Surgical History Past Medical/Surgical History: (1) DM2 (diabetes mellitus, type 2) (2) Asthma Family History Family History: Patient reports no known family medical history. Social History Social History: (1) No significant social history Review of Systems Constitutional: Reports: fever Eye: Reports: no symptoms ENT: Reports: no symptoms Respiratory: Reports: no symptoms Cardiovascular: Reports: no symptoms Gastrointestinal: Reports: abdominal pain, nausea, vomiting Musculoskeletal: Reports: no symptoms Skin: Reports: no symptoms Psychiatric: Reports: no symptoms Neurological: Reports: no symptoms Endocrine: Reports: no symptoms Hematologic/Lymphatic: Reports: no symptoms Physical Exam Physical Exam Narrative General: alert, cooperative, no distress, appears stated age Head: normocephalic, without obvious abnormality, atraumatic Eyes: conjunctivae/corneas clear. PERRL, EOM's intact Throat: lips, mucosa, and tongue normal. MMM Neck: supple, symmetrical, trachea midline, and no JVD Lungs: clear to auscultation bilaterally Heart: regular rate and rhythm, S1, S2 normal, no murmur, click, rub or gallop Abdomen: soft,+TTP diffusely w/o rebound or guarding, non-distended, bowel sounds normal; no masses or organomegaly +b/l CVAT Extremities: extremities normal, atraumatic, no cyanosis or edema Pulses: 2+ and symmetric Skin: skin color, texture, turgor normal; no rashes or lesions Neurologic: grossly normal, no focal deficits Last 24 Hour Vital Signs Date Time Temp Pulse Resp B/P (MAP) Pulse Ox O2 Delivery O2 Flow Rate FiO2 12/06/16 12:00 96.3 92 20 137/93 97 Room Air 12/06/16 11:08 98.0 90 20 126/79 98 Room Air 12/06/16 10:32 90 20 126/79 98 Room Air 12/06/16 07:47 91 20 127/79 96 Room Air 12/06/16 05:00 104 20 119/78 96 Room Air 12/06/16 03:39 98.0 108 18 129/94 94 Room Air 12/06/16 02:33 98.2 12/06/16 01:15 98.2 18 155/108 96 Room Air 12/06/16 00:44 98.2 87 18 155/108 96 Room Air Laboratory Tests Test 12/06/16 01:00 12/06/16 09:50 White Blood Count 9.7 K/UL (4.8-10.8) Red Blood Count 6.22 M/UL (4.20-5.40) H Hemoglobin 14.8 G/DL (12.0-16.0) Hematocrit 48.8 % (37.0-47.0) H Mean Corpuscular Volume 78 FL (80-99) L Mean Corpuscular Hemoglobin 23.7 PG (27.0-31.0) L Mean Corpuscular Hemoglobin Concent 30.2 G/DL (32.0-36.0) L Red Cell Distribution Width 12.8 % (11.6-14.8) Platelet Count 191 K/UL (150-450) Mean Platelet Volume 12.2 FL (6.5-10.1) H Neutrophils (%) (Auto) 64.5 % (45.0-75.0) Lymphocytes (%) (Auto) 25.4 % (20.0-45.0) Monocytes (%) (Auto) 8.0 % (1.0-10.0) Eosinophils (%) (Auto) 0.6 % (0.0-3.0) Basophils (%) (Auto) 1.4 % (0.0-2.0) Sodium Level 134 mEQ/L (135-145) L Potassium Level 3.9 mEQ/L (3.4-4.9) Chloride Level 95 mEQ/L (98-107) L Carbon Dioxide Level 29 mEQ/L (20-30) Anion Gap 10 (5-15) Blood Urea Nitrogen 13 mg/dL (7-23) Creatinine 0.9 mg/dL (0.5-0.9) Estimat Glomerular Filtration Rate > 60 mL/min (>60) Glucose Level 164 mg/dL (74-106) H Calcium Level 9.1 mg/dL (8.6-10.2) Total Bilirubin 0.5 mg/dL (0.0-1.2) Aspartate Amino Transf (AST/SGOT) 13 U/L (5-40) Alanine Aminotransferase (ALT/SGPT) 17 U/L (3-33) Alkaline Phosphatase 70 U/L (35-104) Total Protein 8.1 g/dL (6.6-8.7) Albumin 4.0 g/dL (3.5-5.2) Globulin 4.1 g/dL Albumin/Globulin Ratio 0.9 (1.0-2.7) L Urine Color Pale yellow Urine Appearance Clear Urine pH 5 (4.5-8.0) Urine Specific [place] 1.015 (1.005-1.035) Urine Protein 1+ (NEGATIVE) H Urine Glucose (UA) Negative (NEGATIVE) Urine Ketones Negative (NEGATIVE) Urine Occult Blood 3+ (NEGATIVE) H Urine Nitrite Negative (NEGATIVE) Urine Bilirubin Negative (NEGATIVE) Urine Urobilinogen Normal MG/DL (0.0-1.0) Urine Leukocyte Esterase 1+ (NEGATIVE) H Urine RBC 5-10 /HPF (0 - 2) H Urine WBC 2-4 /HPF (0 - 2) Urine Squamous Epithelial Cells Few /LPF (NONE/OCC) Urine Bacteria Occasional /HPF (NONE) Height (Feet): 5 Height (Inches): 7.00 Weight (Pounds): 260 Medications Current Medications Medications (Trade) Dose Ordered Sig/Jason Route PRN Reason Start Time Stop Time Status Last Admin Dose Admin Al Hydroxide/Mg Hydroxide (Mylanta II) 30 ml Q6H PRN ORAL dyspepsia 12/06/16 12:30 01/05/17 12:29 Albuterol Sulfate (Proventil MDI) 2 puff Q4H PRN INH cough/wheezing 12/06/16 12:30 01/05/17 12:29 Bisacodyl (Dulcolax) 10 mg HSPRN PRN RECTAL Constipation 12/06/16 12:30 01/05/17 12:29 Dextrose (Dextrose 50%) STAT PRN IV Hypoglycemia 12/06/16 12:45 01/05/17 12:44 Diphenhydramine HCl (Benadryl) 25 mg Q6H PRN ORAL Itching/Pruritis 12/06/16 12:30 01/05/17 12:29 Docusate Sodium (Colace) 100 mg EVERY 12 HOURS ORAL 12/06/16 21:00 01/05/17 20:59 Insulin Aspart (NovoLOG) BEFORE MEALS AND HS SUBQ 12/06/16 13:00 01/05/17 12:59 Magnesium Hydroxide (Mom) 30 ml HSPRN PRN ORAL Constipation 12/06/16 12:30 01/05/17 12:29 Ondansetron HCl (Zofran) 4 mg Q6H PRN IVP Nausea & Vomiting 12/06/16 12:30 01/05/17 12:29 Polyethylene Glycol (Miralax) 17 gm HSPRN PRN ORAL Constipation 12/06/16 12:30 01/05/17 12:29 Salmeterol Xinafoate/ Fluticasone (Advair 100/50 Diskus) 1 puffs TWICE A DAY INH 12/06/16 18:00 01/05/17 17:59 Sodium Chloride 1,000 ml @ 75 mls/hr [id number] IV 12/06/16 13:22 01/05/17 13:21 Zolpidem Tartrate (Ambien) 5 mg HSPRN PRN ORAL Insomnia 12/06/16 12:30 12/13/16 12:29 Assessment/Plan Problem List: (1) Pyelonephritis ICD Codes: N12 - Tubulo-interstitial nephritis, not specified as acute or chronic SNOMED: 14533589 (2) Asthma ICD Codes: J45.909 - Unspecified asthma, uncomplicated SNOMED: 945584566 (3) DM2 (diabetes mellitus, type 2) ICD Codes: E11.9 - Type 2 diabetes mellitus without complications SNOMED: 61730551 Status: stable Assessment/Plan Admit inpt ID consulted Cont ceftriaxone 12/06- F/u urine culture Cont home meds but hold MTF SHAYY Pain control, supportive care, bowel regimen Nausea control SCDs for DVT ppx FULL CODE D/w pt, RN and ID re mgmt and dispo Lauren Carrero M.D. Dec 06, 2016 12:38
--- NOTE | 2016-12-06 12:49 | Infectious Diseases Prog Note ---
Assessment/Plan Assessment/Plan Full consult dictated: A) 1) uti, pyelonephritis 2) recently in [place] [facility] with + ua but no uc, ct c/w possible pyelonephritis , macrobid given 3) test - negative P) 1) ceftriaxone iv 2) check bc and uc 3) thanks Subjective Allergies: Coded Allergies: METOPROLOL (Verified Allergy, Severe, rash, 11/18/13) TOMATO (Verified Allergy, Severe, Anaphylaxis, 12/25/11) IBUPROFEN (Verified Allergy, Intermediate, 02/15/16) GRASS POLLEN (Verified Allergy, Unknown, 08/29/16) Objective Vital Signs Last 24 Hour Vital Signs Date Time Temp Pulse Resp B/P (MAP) Pulse Ox O2 Delivery O2 Flow Rate FiO2 12/06/16 12:00 96.3 92 20 137/93 97 Room Air 12/06/16 11:08 98.0 90 20 126/79 98 Room Air 12/06/16 10:32 90 20 126/79 98 Room Air 12/06/16 07:47 91 20 127/79 96 Room Air 12/06/16 05:00 104 20 119/78 96 Room Air 12/06/16 03:39 98.0 108 18 129/94 94 Room Air 12/06/16 02:33 98.2 12/06/16 01:15 98.2 18 155/108 96 Room Air 12/06/16 00:44 98.2 87 18 155/108 96 Room Air Height (Feet): 5 Height (Inches): 7.00 Weight (Pounds): 260 Laboratory Tests Test 12/06/16 01:00 12/06/16 09:50 White Blood Count 9.7 K/UL (4.8-10.8) Red Blood Count 6.22 M/UL (4.20-5.40) H Hemoglobin 14.8 G/DL (12.0-16.0) Hematocrit 48.8 % (37.0-47.0) H Mean Corpuscular Volume 78 FL (80-99) L Mean Corpuscular Hemoglobin 23.7 PG (27.0-31.0) L Mean Corpuscular Hemoglobin Concent 30.2 G/DL (32.0-36.0) L Red Cell Distribution Width 12.8 % (11.6-14.8) Platelet Count 191 K/UL (150-450) Mean Platelet Volume 12.2 FL (6.5-10.1) H Neutrophils (%) (Auto) 64.5 % (45.0-75.0) Lymphocytes (%) (Auto) 25.4 % (20.0-45.0) Monocytes (%) (Auto) 8.0 % (1.0-10.0) Eosinophils (%) (Auto) 0.6 % (0.0-3.0) Basophils (%) (Auto) 1.4 % (0.0-2.0) Sodium Level 134 mEQ/L (135-145) L Potassium Level 3.9 mEQ/L (3.4-4.9) Chloride Level 95 mEQ/L (98-107) L Carbon Dioxide Level 29 mEQ/L (20-30) Anion Gap 10 (5-15) Blood Urea Nitrogen 13 mg/dL (7-23) Creatinine 0.9 mg/dL (0.5-0.9) Estimat Glomerular Filtration Rate > 60 mL/min (>60) Glucose Level 164 mg/dL (74-106) H Calcium Level 9.1 mg/dL (8.6-10.2) Total Bilirubin 0.5 mg/dL (0.0-1.2) Aspartate Amino Transf (AST/SGOT) 13 U/L (5-40) Alanine Aminotransferase (ALT/SGPT) 17 U/L (3-33) Alkaline Phosphatase 70 U/L (35-104) Total Protein 8.1 g/dL (6.6-8.7) Albumin 4.0 g/dL (3.5-5.2) Globulin 4.1 g/dL Albumin/Globulin Ratio 0.9 (1.0-2.7) L Urine Color Pale yellow Urine Appearance Clear Urine pH 5 (4.5-8.0) Urine Specific [place] 1.015 (1.005-1.035) Urine Protein 1+ (NEGATIVE) H Urine Glucose (UA) Negative (NEGATIVE) Urine Ketones Negative (NEGATIVE) Urine Occult Blood 3+ (NEGATIVE) H Urine Nitrite Negative (NEGATIVE) Urine Bilirubin Negative (NEGATIVE) Urine Urobilinogen Normal MG/DL (0.0-1.0) Urine Leukocyte Esterase 1+ (NEGATIVE) H Urine RBC 5-10 /HPF (0 - 2) H Urine WBC 2-4 /HPF (0 - 2) Urine Squamous Epithelial Cells Few /LPF (NONE/OCC) Urine Bacteria Occasional /HPF (NONE) Current Medications Medications (Trade) Dose Ordered Sig/Jason Route PRN Reason Start Time Stop Time Status Last Admin Dose Admin Al Hydroxide/Mg Hydroxide (Mylanta II) 30 ml Q6H PRN ORAL dyspepsia 12/06/16 12:30 01/05/17 12:29 Albuterol Sulfate (Proventil MDI) 2 puff Q4H PRN INH cough/wheezing 12/06/16 12:30 01/05/17 12:29 Bisacodyl (Dulcolax) 10 mg HSPRN PRN RECTAL Constipation 12/06/16 12:30 01/05/17 12:29 Dextrose (Dextrose 50%) STAT PRN IV Hypoglycemia 12/06/16 12:45 01/05/17 12:44 Diphenhydramine HCl (Benadryl) 25 mg Q6H PRN ORAL Itching/Pruritis 12/06/16 12:30 01/05/17 12:29 Docusate Sodium (Colace) 100 mg EVERY 12 HOURS ORAL 12/06/16 21:00 01/05/17 20:59 Insulin Aspart (NovoLOG) BEFORE MEALS AND HS SUBQ 12/06/16 13:00 01/05/17 12:59 Magnesium Hydroxide (Mom) 30 ml HSPRN PRN ORAL Constipation 12/06/16 12:30 01/05/17 12:29 Ondansetron HCl (Zofran) 4 mg Q6H PRN IVP Nausea & Vomiting 12/06/16 12:30 01/05/17 12:29 Polyethylene Glycol (Miralax) 17 gm HSPRN PRN ORAL Constipation 12/06/16 12:30 01/05/17 12:29 Salmeterol Xinafoate/ Fluticasone (Advair 100/50 Diskus) 1 puffs TWICE A DAY INH 12/06/16 18:00 01/05/17 17:59 Sodium Chloride 1,000 ml @ 75 mls/hr [id number] IV 12/06/16 13:22 01/05/17 13:21 Zolpidem Tartrate (Ambien) 5 mg HSPRN PRN ORAL Insomnia 12/06/16 12:30 9/13/17 12:29 ALKASSPOOLES,SALAM Dec 06, 2016 12:49
[2016-12-06] MEDS: NovoLOG Insulin Flexpen SUBQ SCH ×3 (13:00→20:28)
[2016-12-06] MEDS: Norco 10mg/325mg tab ORAL PRN ×2 (14:53→19:39)
[2016-12-06] MEDS: cefTRIAXone 1 GM in D5W 55 ML IVPB SCH (14:55)
[2016-12-06] MEDS ORDERED: Norco 5mg/325mg tab ORAL PRN (15:00)
[2016-12-06] MEDS: Docusate 100mg cap ORAL SCH (20:30)
[2016-12-07] VITALS: BP 127/76
[2016-12-07] MEDS: Advair 100/50 Inhaler - 14 dose INH SCH ×2 (00:12→07:14)
[2016-12-07 04:00] VITALS: BP 136/79
[2016-12-07] MEDS: NovoLOG Insulin Flexpen SUBQ SCH ×3 (05:54→16:35)
[2016-12-07 07:36] LABS: LYMPHOCYTES % (AUTO) 34.3 % (20.0-45.0); MEAN CORPUSCULAR HEMOGLOBIN 24.7 PG (27.0-31.0); MEAN CORPUSCULAR HGB CONC 30.6 G/DL (32.0-36.0); MEAN CORPUSCULAR VOLUME 81 FL (80-99); MEAN PLATELET VOLUME 11.9 FL (6.5-10.1); MONOCYTES % (AUTO) 5.1 % (1.0-10.0); NEUTROPHILS % (AUTO) 57.6 % (45.0-75.0); PLATELET COUNT 152 K/UL (150-450); RED BLOOD COUNT 5.66 M/UL (4.20-5.40); WHITE BLOOD COUNT 7.8 K/UL (4.8-10.8)
[2016-12-07 08:01] LABS: ANION GAP 7 (5-15); CALCIUM 9.1 mg/dL (8.6-10.2); CARBON DIOXIDE 31 mEQ/L (20-30); CHLORIDE 99 mEQ/L (98-107); CREATININE 0.8 mg/dL (0.5-0.9); GLOMERULAR FILTRATION RATE > 60 mL/min (>60); HEMOLYSIS 5; MAGNESIUM 1.8 mg/dL (1.7-2.5); SODIUM 137 mEQ/L (135-145)
[2016-12-07 08:02] VITALS: BP 137/91
[2016-12-07] MEDS: Norco 10mg/325mg tab ORAL PRN ×2 (08:10→16:42)
[2016-12-07] MEDS: Docusate 100mg cap ORAL SCH (08:13)
[2016-12-07 11:52] VITALS: BP 131/84
--- NOTE | 2016-12-07 14:33 | General Progress Note ---
Assessment/Plan Problem List: (1) Pyelonephritis ICD Codes: N12 - Tubulo-interstitial nephritis, not specified as acute or chronic SNOMED: 74612585 (2) Asthma ICD Codes: J45.909 - Unspecified asthma, uncomplicated SNOMED: 310222539 (3) DM2 (diabetes mellitus, type 2) ICD Codes: E11.9 - Type 2 diabetes mellitus without complications SNOMED: 16913899 Subjective Date patient seen: Dec 07, 2016 Time patient seen: 14:33 Allergies: Coded Allergies: METOPROLOL (Verified Allergy, Severe, rash, 11/18/13) TOMATO (Verified Allergy, Severe, Anaphylaxis, 12/25/11) IBUPROFEN (Verified Allergy, Intermediate, 02/15/16) GRASS POLLEN (Verified Allergy, Unknown, 08/29/16) Objective Last 24 Hour Vital Signs Date Time Temp Pulse Resp B/P (MAP) Pulse Ox O2 Delivery O2 Flow Rate FiO2 12/07/16 11:52 97.7 86 20 131/84 98 Room Air 12/07/16 09:09 97.9 12/07/16 08:02 97.9 92 18 137/91 96 Room Air 12/07/16 07:18 94 18 97 Room Air 12/07/16 07:16 93 18 96 Room Air 12/07/16 04:00 98.0 89 20 136/79 97 Room Air 12/07/16 00:14 68 16 98 Room Air 21 12/07/16 00:12 67 16 98 Room Air 21 12/07/16 00:00 97.9 91 18 127/76 96 Room Air 12/06/16 20:00 98.1 92 20 121/79 97 Room Air 12/06/16 16:09 97.5 96 18 131/81 98 Room Air Intake and Output 12/07/16 12/08/16 19:00 07:00 Intake Total 610 ml Balance 610 ml Intake Oral 460 ml IV Total 150 ml # Voids 1 Laboratory Tests 12/07/16 06:40: White Blood Count 7.8, Red Blood Count 5.66H, Hemoglobin 14.0, Hematocrit 45.8, Mean Corpuscular Volume 81, Mean Corpuscular Hemoglobin 24.7L, Mean Corpuscular Hemoglobin Concent 30.6L, Red Cell Distribution Width 13.0, Platelet Count 152, Mean Platelet Volume 11.9H, Neutrophils (%) (Auto) 57.6, Lymphocytes (%) (Auto) 34.3, Monocytes (%) (Auto) 5.1, Eosinophils (%) (Auto) 1.0, Basophils (%) (Auto ) 2.0, Sodium Level 137, Potassium Level 4.0, Chloride Level 99, Carbon Dioxide Level 31H, Anion Gap 7, Blood Urea Nitrogen 10, Creatinine 0.8, Estimat Glomerular Filtration Rate > 60, Glucose Level 157H, Calcium Level 9.1, Magnesium Level 1.8 Height (Feet): 5 Height (Inches): 7.00 Weight (Pounds): 260 Lauren Carrero M.D. Dec 07, 2016 14:33
[2016-12-07] MEDS: cefTRIAXone 1 GM in D5W 55 ML IVPB SCH (14:59)
[2016-12-07 16:00] VITALS: BP 131/83
--- NOTE | 2016-12-07 16:59 | Infectious Diseases Prog Note ---
Assessment/Plan Assessment/Plan Full consult dictated: A) 1) uti, pyelonephritis 2) recently in [facility] with + ua but no uc, ct c/w possible pyelonephritis , macrobid given 3) test - negative P) 1) ceftriaxone iv - day # 2 2) check bc and uc 3) d/w patient Subjective Allergies: Coded Allergies: METOPROLOL (Verified Allergy, Severe, rash, 11/18/13) TOMATO (Verified Allergy, Severe, Anaphylaxis, 12/25/11) IBUPROFEN (Verified Allergy, Intermediate, 02/15/16) GRASS POLLEN (Verified Allergy, Unknown, 08/29/16) Objective Vital Signs Last 24 Hour Vital Signs Date Time Temp Pulse Resp B/P (MAP) Pulse Ox O2 Delivery O2 Flow Rate FiO2 12/07/16 16:00 97.2 89 21 131/83 92 Room Air 12/07/16 11:52 97.7 86 20 131/84 98 Room Air 12/07/16 09:09 97.9 12/07/16 08:02 97.9 92 18 137/91 96 Room Air 12/07/16 07:18 94 18 97 Room Air 12/07/16 07:16 93 18 96 Room Air 12/07/16 04:00 98.0 89 20 136/79 97 Room Air 12/07/16 00:14 68 16 98 Room Air 12/07/16 00:12 67 16 98 Room Air 21 12/07/16 00:00 97.9 91 18 127/76 96 Room Air 12/06/16 20:00 98.1 92 20 121/79 97 Room Air Height (Feet): 5 Height (Inches): 7.00 Weight (Pounds): 260 Microbiology Date/Time Source Procedure Growth Status 12/06/16 01:15 Blood Blood Culture - Preliminary NO GROWTH AFTER 24 HOURS Resulted 12/06/16 01:00 Blood Blood Culture - Preliminary NO GROWTH AFTER 24 HOURS Resulted 12/06/16 14:30 Urine,Clean Catch Urine Culture - Preliminary Resulted Laboratory Tests Test 12/07/16 06:40 White Blood Count 7.8 K/UL (4.8-10.8) Red Blood Count 5.66 M/UL (4.20-5.40) H Hemoglobin 14.0 G/DL (12.0-16.0) Hematocrit 45.8 % (37.0-47.0) Mean Corpuscular Volume 81 FL (80-99) Mean Corpuscular Hemoglobin 24.7 PG (27.0-31.0) L Mean Corpuscular Hemoglobin Concent 30.6 G/DL (32.0-36.0) L Red Cell Distribution Width 13.0 % (11.6-14.8) Platelet Count 152 K/UL (150-450) Mean Platelet Volume 11.9 FL (6.5-10.1) H Neutrophils (%) (Auto) 57.6 % (45.0-75.0) Lymphocytes (%) (Auto) 34.3 % (20.0-45.0) Monocytes (%) (Auto) 5.1 % (1.0-10.0) Eosinophils (%) (Auto) 1.0 % (0.0-3.0) Basophils (%) (Auto) 2.0 % (0.0-2.0) Sodium Level 137 mEQ/L (135-145) Potassium Level 4.0 mEQ/L (3.4-4.9) Chloride Level 99 mEQ/L (98-107) Carbon Dioxide Level 31 mEQ/L (20-30) H Anion Gap 7 (5-15) Blood Urea Nitrogen 10 mg/dL (7-23) Creatinine 0.8 mg/dL (0.5-0.9) Estimat Glomerular Filtration Rate > 60 mL/min (>60) Glucose Level 157 mg/dL (74-106) H Calcium Level 9.1 mg/dL (8.6-10.2) Magnesium Level 1.8 mg/dL (1.7-2.5) Current Medications Medications (Trade) Dose Ordered Sig/Jason Route PRN Reason Start Time Stop Time Status Last Admin Dose Admin Acetaminophen/ Hydrocodone Bitart ([place] 10/325) 1 ea Q4H PRN ORAL Severe Pain (Pain Scale 7-10) 12/06/16 15:00 12/13/16 14:59 12/07/16 16:42 Acetaminophen/ Hydrocodone Bitart ([place] 5/325) 1 tab Q4H PRN ORAL Moderate Pain (Pain Scale 4-6) 12/06/16 15:00 12/13/16 14:59 Al Hydroxide/Mg Hydroxide (Mylanta II) 30 ml Q6H PRN ORAL dyspepsia 12/06/16 12:30 01/05/17 12:29 Albuterol Sulfate (Proventil MDI) 2 puff Q4H PRN INH cough/wheezing 12/06/16 12:30 01/05/17 12:29 Bisacodyl (Dulcolax) 10 mg HSPRN PRN RECTAL Constipation 12/06/16 12:30 01/05/17 12:29 Ceftriaxone Sodium 1 gm/ Dextrose 55 ml @ 110 mls/hr Q24H IVPB 12/06/16 15:00 12/13/16 14:59 12/07/16 14:59 Dextrose (Dextrose 50%) STAT PRN IV Hypoglycemia 12/06/16 12:45 01/05/17 12:44 Diphenhydramine HCl (Benadryl) 25 mg Q6H PRN ORAL Itching/Pruritis 12/06/16 12:30 01/05/17 12:29 Docusate Sodium (Colace) 100 mg EVERY 12 HOURS ORAL 12/06/16 21:00 01/05/17 20:59 12/07/16 08:13 Insulin Aspart (NovoLOG) BEFORE MEALS AND HS SUBQ 12/06/16 13:00 01/05/17 12:59 12/07/16 16:35 Magnesium Hydroxide (Mom) 30 ml HSPRN PRN ORAL Constipation 12/06/16 12:30 01/05/17 12:29 12/07/16 16:42 Ondansetron HCl (Zofran) 4 mg Q6H PRN IVP Nausea & Vomiting 12/06/16 12:30 01/05/17 12:29 Polyethylene Glycol (Miralax) 17 gm HSPRN PRN ORAL Constipation 12/06/16 12:30 01/05/17 12:29 Salmeterol Xinafoate/ Fluticasone (Advair 100/50 Diskus) 1 puffs TWICE A DAY INH 12/06/16 18:00 01/05/17 17:59 12/07/16 07:14 Sodium Chloride 1,000 ml @ 75 mls/hr [id number] IV 12/06/16 13:22 01/05/17 13:21 12/07/16 16:03 Zolpidem Tartrate (Ambien) 5 mg HSPRN PRN ORAL Insomnia 12/06/16 12:30 12/13/16 12:29 LEO FIERRO Dec 07, 2016 16:59
[2016-12-07] MEDS ORDERED: NS 55ml IV ONE (17:40)
[2016-12-07] MEDS ORDERED: CIPROFLOXACIN500 M2 ORAL (18:19)
[2016-12-07] MEDS ORDERED: ZOFRAN ODT4 MG ORAL (18:21)
[2016-12-07] MEDS ORDERED: 1/2 NS 1000ml IV ONE (18:43)
--- NOTE | 2016-12-08 05:45 | Consultation ---
DATE OF CONSULTATION: 12/07/2016 INFECTIOUS DISEASE CONSULTATION CONSULTING PHYSICIAN: Maggie Danielle M.D. ATTENDING PHYSICIAN: [place]o Mireles M.D. REFERRING PHYSICIAN: I was asked by Dr. Aguilar to see this patient. REASON FOR CONSULTATION: Pyelonephritis and UTI. CHIEF COMPLAINT: The patient's chief complaint coming into the hospital is pyelonephritis. HISTORY OF PRESENT ILLNESS: This is a 36-year-old female who came in to [facility]. She went initially to the emergency room on 12/04/2016. The patient had abdominal pain at that time and elevated white count. White count was 11.8. She has a history of fevers. Urinalysis had 3+ leukocyte esterase, 5-10 white blood cells, and moderate bacteria. Her urine HCG was negative. A CT scan of the abdomen and pelvis were suggestive of pyelonephritis or nephritis, pyelitis, and also cystitis. The patient was discharged I believe on Macrobid based on the records, I am not sure if it was nitrofurantoin 100 mg. The patient went home or discharged from the ER and the patient now presents to [facility] with CVA tenderness and abdominal pain, she says bilaterally to me when I saw her. The patient was admitted for pyelonephritis and IV antibiotics. The patient was placed on Rocephin 1 g IV q.24 hours when I saw the patient yesterday and today she says her dysuria and frequency is better. The patient was admitted for, again, pyelonephritis and started on IV Rocephin, and as I discussed clinically improved today. She still has some CVA tenderness. MAR was noted. Orders were noted. Notes were reviewed. Case was discussed with Lauren, who is associated with Dr. Mireles. PAST MEDICAL HISTORY: The patient's past medical history includes the following: The patient has a past medical history of asthma and diabetes. She also has a past medical history of bipolar disease. In addition to asthma and diabetes, she has hypertension. ALLERGIES: Grass, pollen, ibuprofen, metoprolol, and tomatoes. MEDICATIONS: Upon reviewing the MAR, she is on the following medications: She is on Colace, Advair, Rocephin, hydrocodone, [place], NovoLog insulin, Dulcolax, MOM, MiraLAX, Zofran, zolpidem, Ambien, Benadryl, and hydroxide. FAMILY HISTORY: Noncontributory. SOCIAL HISTORY: Negative for smoking, alcohol, and drug abuse. REVIEW OF SYSTEMS: Constitutional: The patient has generalized weakness and fatigue. She also had fevers in the outpatient setting. No weight loss or night sweats. Head And Neck: No thrush or dysphagia. Cardiac: No chest pain. Gastrointestinal: No nausea, vomiting, or diarrhea. Some abdominal discomfort related to her CVA tenderness. Genitourinary: She has CVA tenderness and also dysuria and frequency. Pulmonary: No congestion or shortness of breath. Skin: No rash. Neurologic: No seizures. PHYSICAL EXAMINATION: VITAL SIGNS: Temperature is 97.2, pulse rate 89, respiratory rate 21, blood pressure 131/82, and saturation 92% to 98%. GENERAL: Alert and responsive, in no acute distress. HEAD AND NECK: Oral exam, no thrush. Eye exam, no icterus. Normocephalic. No facial droop. No neck stiffness. No sinus tenderness. Neck is supple. HEART: Regular. No gallop or murmur. LUNGS: Clear bilaterally. No rhonchi or rales. ABDOMEN: Soft. Positive bowel sounds. Some tenderness in the lower part of the abdomen. SKIN: No rash or dermatitis. MUSCULOSKELETAL: No effusions. Legs are without cellulitis. PERIPHERAL VASCULAR: No cyanosis or gangrene. RECTAL: Exam deferred. GENITOURINARY: No [place]. She has CVA tenderness bilaterally. LINES: Line sites without phlebitis. NEUROLOGIC: Generalized weakness, responsive, oriented x3. LABORATORY AND DIAGNOSTIC DATA: Laboratory data as follows: Creatinine is 0.8. White count 7.8 and hemoglobin 14.0. Urinalysis shows 1+ leukocyte esterase. Urine cultures are pending. Blood cultures are negative. Previous urinalysis showed 3+ leukocyte esterase, 5-10 white blood cells, and moderate bacteria. HCG urine was positive. Urine culture grew out E. coli that was pansensitive. CT scan was consistent with pyelitis, cystitis, pyelonephritis, and nephritis. ASSESSMENT AND PLAN: 1. The patient had Escherichia coli, pyelonephritis, and urinary tract infection. The patient's urine culture from the ER on 12/04/2016 was pansensitive. We will continue Rocephin for now. Upon discharge, I will consider discharging the patient on another 10 days of antibiotics, she will need a total of 10 to 14 days of antibiotics. I would favor using a fluoroquinolone such as Cipro or Levaquin and another alternative could be Bactrim. This was discussed with Dr. Aguilar. 2. Diabetes mellitus. 3. Hypertension. 4. Asthma. 5. Bipolar disease. 6. Allergy to grass, pollen, ibuprofen, metoprolol, and tomatoes. 7. Social history is negative. 8. Family is noncontributory. 9. MAR was noted. 10. Case was discussed with Dr. Aguilar. Maggie Danielle M.D. DR: DARRYL JOB#: [id number] CC:
--- NOTE | 2016-12-08 06:11 | Discharge Summary ---
Discharge Summary Hospital Course Date of Admission Dec 06, 2016 at 09:14 Date of Discharge Dec 07, 2016 at 18:44 Admitting Diagnosis PYELONEPHRITIS Reason for Hospitalization: Acute pyelonephritis HPI 36y/o female with pmh of asthma, DM2 who presents with abd pain and nausea/ vomiting. Pt was seen in ED yesterday w/ similar symptoms and diagnosed w/ a UTi and discharged home w/ PO antibiotics. Pt continued to have pain, nausea/ vomiting prompting her to come back to ED. Abd pain described as diffuse and sharp. Also w/ b/l flank pain. Also c/o fevers/chills. Denies chest pain, SOB, d /c. In ED, pt had CT a/p showed "blateral hydronephrosis/perinephric stranding without evidence of an obstructing stone. Similar thickening of the urinary bladder wall noted. Findings could be on the basis of cystitis and toshia nephritis/pyelitis." Pt was given ceftriaxone IV. Consultations Infectious disease Hospital Course Pt was admitted and seen by ID. She was continued on ceftriaxone IV for pyelonephritis. Her symptoms improved. Urine culture was unreliable as she had been on antibiotics recently. Pt was discharged on course of ciprofloxacin to complete treatment per ID. Discharge Medications New Medications: Ciprofloxacin Hcl* (Ciprofloxacin Hcl*) 500 Mg Tablet 500 MG ORAL Q12H for 10 Days, #20 TAB 0 Refills Ondansetron Odt* (Zofran Odt*) 4 Mg Tab.rapdis 4 MG ORAL Q6H PRN, #30 TAB 0 Refills Continued Medications: Acetaminophen With Codeine (T#3) (Tylenol #3 Tab*) Y Tab 1 TAB ORAL Q8H PRN for For Pain, #15 TAB Albuterol Sulfate* (Albuterol Sulfate Mdi*) 8.5 Gm Hfa.aer.ad 2 PUFF INH Q4H PRN for cough/wheezing, #1 EA 0 Refills Albuterol Sulfate* (Albuterol Sulfate Hhn*) 2.5 Mg/3 Ml Vial.neb 2.5 MG HHN Q4H PRN for Shortness of Breath, #25 VIAL Famotidine (Pepcid) 20 Mg Tablet 20 MG ORAL DAILY, #14 TAB 0 Refills Fluticasone/Salmeterol (Advair 100-50 Diskus) 1 Each Blst.w.dev 1 PUFF INH TWICE A DAY, #1 EA Hydrocodone Bit/Acetaminophen 5-325* ([place] 5-325*) 1 Each Tablet 1 TAB ORAL Q12HR PRN for For Pain, #10 TAB 0 Refills Metformin Hcl* (Glucophage*) 500 Mg Tablet 500 MG PO DAILY, #10 TAB Take 1 tablet by mouth every day. Ondansetron Odt* (Zofran Odt*) 4 Mg Tab.rapdis 4 MG ORAL Q8H PRN for Nausea & Vomiting, #6 TAB 1 Refill Tramadol Hcl* (Ultram*) 50 Mg Tablet 50 MG ORAL Q6H PRN for For Pain, #12 TAB 0 Refills Discontinued Medications: Cephalexin* (Keflex*) 500 Mg Capsule 500 MG ORAL Q6H, #28 CAP 0 Refills Nitrofurantoin Monohyd/M-Cryst* (Macrobid 100 Mg*) 100 Mg Capsule 100 MG ORAL EVERY 12 HOURS, #14 CAP Trimethoprim/Sulfamethoxazole 160/800* (Bactrim Ds Tablet*) 1 Each Tablet 1 TAB ORAL Q12H, #14 TAB 0 Refills Discharge Condition Upon Discharge: stable Discharge Disposition Patient was discharged to Home (01) Discharge Diagnoses: (1) Acute pyelonephritis Lauren Carrero M.D. Dec 08, 2016 06:11
== END 2016-12-07 18:44 | disposition home or self-care (01) | DRG 463 ==
LOC: EDBD 00:36 → EMR 00:54 → 3E 09:14 → EDBEDREQ 09:19 → 4W 12-07 08:24
DX: N10 Acute pyelonephritis (principal); B96.20 Unspecified Escherichia coli [E. coli] as the cause of diseases classified elsewhere; E11.9 Type 2 diabetes mellitus without complications; J45.909 Unspecified asthma, uncomplicated
CPT/HCPCS: 36415; 80048; 80053; 81003; 82962; 83735; 85025; 87040; 87086; 94640; 99285; J1815; J2405

== ENCOUNTER → 2017-07-16 | Emergency (ER) | payer MEDICAID ==
[~2017-07-16] VITALS: Ht 170.2 cm; Wt 81.6 kg
[~2017-07-16] MED LIST changes: +CIPROFLOXACIN500 M2 ORAL; +Morphine Sulfate 4mg/ml Inj IVP ONE; +REGLAN10 MG ORAL; +UNOBMED
[2017-07-16 15:50] VITALS: BP 128/84
--- NOTE | 2017-07-16 16:05 | Emergency Room Report ---
History of Present Illness General Chief Complaint: Abdominal Pain Source: Patient, Medical Record Present Illness HPI Patient presents with complaints of fairly diffuse abdominal pain Reports the pain started last week Today while driving she felt the pain was worse Denies any vomiting or diarrhea denies any chest pain or shortness of breath denies any fevers Pain however is 10 out of 10 cramping times sensation Denies any dysuria denies any trauma denies any exacerbating or ameliorating factors Allergies: Coded Allergies: TOMATO (Verified Allergy, Severe, Anaphylaxis, 12/25/11) IBUPROFEN (Verified Allergy, Intermediate, 02/15/16) ACETAMINOPHEN (Verified Allergy, Unknown, hives, 07/16/17) GRASS POLLEN (Verified Allergy, Unknown, 08/29/16) Patient History Past Medical History: see triage record Pertinent Family History: none Last Menstrual Period: 05/20 Reviewed Nursing Documentation: PMH: Agreed; PSxH: Agreed Nursing Documentation-PMH Past Medical History: No History, Except For Hx Cardiac Problems: No Hx Hypertension: Yes Hx Pacemaker: No Hx Asthma: Yes Hx COPD: No Hx Diabetes: Yes Hx Cancer: No Hx Gastrointestinal Problems: No Hx Dialysis: No Hx Neurological Problems: Yes - bipolar Hx Cerebrovascular Accident: No Hx Seizures: No Review of Systems All Other Systems: negative except mentioned in HPI Physical Exam Vital Signs Date Time Temp Pulse Resp B/P (MAP) Pulse Ox O2 Delivery O2 Flow Rate FiO2 07/16/17 15:40 97.5 91 18 121/79 95 Room Air 97.5 Sp02 EP Interpretation: reviewed, normal General Appearance: well appearing, no apparent distress Head: normocephalic, atraumatic Eyes: bilateral eye PERRL, bilateral eye EOMI ENT: hearing grossly normal, normal pharynx, TMs + canals normal, uvula midline Neck: full range of motion, supple, no meningismus, no bony tend Respiratory: lungs clear, normal breath sounds, no rhonchi, no respiratory distress, no retraction, no accessory muscle use Cardiovascular #1: normal peripheral pulses, regular rate, rhythm, no edema, no gallop, no JVD, no murmur Gastrointestinal: normal bowel sounds, soft, no mass, no organomegaly, non- distended, no guarding, no hernia, no pulsatile mass, no rebound, other - Patient is tender diffusely with any slight touch, somewhat out of proportion to exam however soft abdomen. I cannot localize the pain to specific quadrant Genitourinary: no CVA tenderness Musculoskeletal: normal inspection Neurologic: oriented x3, responsive, washroom operator III-XII nml as tested, motor strength/ tone normal, sensory intact Psychiatric: mood/affect normal Skin: normal color, no rash, warm/dry, palpation normal Lymphatic: normal inspection, no adenopathy Medical Decision Making Diagnostic Impression: Primary Impression: Abdominal pain ER Course With the patient's history and examination, multiple differentials considered, including but not limited to , ectopic , ovarian torsion, gastritis, cholecystitis, pancreatitis, appendicitis Patient is complex requiring multiple blood work and imaging Patient's blood work is normal Imaging study was also appropriate Patient resting comfortably in the emergency room and at this time is stable for close outpatient follow-up Labs Test 07/16/17 16:15 07/16/17 16:30 Urine Color Pale yellow Urine Appearance Clear Urine pH 5 (4.5-8.0) Urine Specific [place] 1.025 (1.005-1.035) Urine Protein Negative (NEGATIVE) Urine Glucose (UA) 4+ (NEGATIVE) Urine Ketones Negative (NEGATIVE) Urine Occult Blood 1+ (NEGATIVE) Urine Nitrite Negative (NEGATIVE) Urine Bilirubin Negative (NEGATIVE) Urine Urobilinogen Normal MG/DL (0.0-1.0) Urine Leukocyte Esterase 1+ (NEGATIVE) Urine RBC 2-4 /HPF (0 - 2) Urine WBC 0-2 /HPF (0 - 2) Urine Squamous Epithelial Cells Few /LPF (NONE/OCC) Urine Bacteria Few /HPF (NONE) Urine HCG, Qualitative Negative (NEGATIVE) White Blood Count 8.3 K/UL (4.8-10.8) Red Blood Count 6.20 M/UL (4.20-5.40) Hemoglobin 14.7 G/DL (12.0-16.0) Hematocrit 46.8 % (37.0-47.0) Mean Corpuscular Volume 75 FL (80-99) Mean Corpuscular Hemoglobin 23.6 PG (27.0-31.0) Mean Corpuscular Hemoglobin Concent 31.3 G/DL (32.0-36.0) Red Cell Distribution Width 13.4 % (11.6-14.8) Platelet Count 150 K/UL (150-450) Mean Platelet Volume 12.9 FL (6.5-10.1) Neutrophils (%) (Auto) 52.3 % (45.0-75.0) Lymphocytes (%) (Auto) 39.7 % (20.0-45.0) Monocytes (%) (Auto) 5.8 % (1.0-10.0) Eosinophils (%) (Auto) 0.6 % (0.0-3.0) Basophils (%) (Auto) 1.7 % (0.0-2.0) Sodium Level 138 MMOL/L (136-145) Potassium Level 3.9 MMOL/L (3.5-5.1) Chloride Level 102 MMOL/L (98-107) Carbon Dioxide Level 33 MMOL/L (21-32) Anion Gap 3 mmol/L (5-15) Blood Urea Nitrogen 18 mg/dL (7-18) Creatinine 1.0 MG/DL (0.55-1.30) Estimat Glomerular Filtration Rate > 60 mL/min (>60) Glucose Level 232 MG/DL (74-106) Calcium Level 9.2 MG/DL (8.5-10.1) Total Bilirubin 0.5 MG/DL (0.2-1.0) Aspartate Amino Transf (AST/SGOT) 14 U/L (15-37) Alanine Aminotransferase (ALT/SGPT) 32 U/L (12-78) Alkaline Phosphatase 61 U/L (46-116) Total Protein 7.8 G/DL (6.4-8.2) Albumin 3.9 G/DL (3.4-5.0) Globulin 3.9 g/dL Albumin/Globulin Ratio 1.0 (1.0-2.7) Lipase 284 U/L (73-393) CT/MRI/US Diagnostic Results CT/MRI/US Diagnostic Results : Impression CT abdomen pelvisImpression: Limited assessment of the GI tract, given lack of enteric contrast administration No definite acute process demonstrated Fatty liver Previously demonstrated bladder, renal and ureteral inflammation is no longer evident Incidental finding of hepatic calcification, presumably on the basis of old inflammation Last Vital Signs Date Time Temp Pulse Resp B/P (MAP) Pulse Ox O2 Delivery O2 Flow Rate FiO2 07/16/17 15:40 97.5 91 18 121/79 95 Room Air 97.5 Status: improved Disposition: HOME, SELF-CARE Condition: Improved Scripts Metoclopramide Hcl* (REGLAN*) 10 Mg Tablet 10 MG ORAL BID, #12 TAB Prov: Ashkan Bassett DO 07/16/17 Additional Instructions: Patient is provided with the discharge instructions notified to follow up with primary doctor in the next 2-3 days otherwise return to the er with any worsening symptoms. Please note that this report is being documented using [employer] technology. This can lead to erroneous entry secondary to incorrect interpretation by the dictating instrument. Ashkan Bassett DO Jul 16, 2017 16:05
[2017-07-16 16:27] LABS: APPEARANCE,URINE CLEAR; BILIRUBIN, URINE NEGATIVE (NEGATIVE); COLOR,URINE PALE YELLOW; GLUCOSE, URINE (UA) 4+ (NEGATIVE); KETONES,URINE NEGATIVE (NEGATIVE); LEUKOCYTE ESTERASE ,URINE 1+ (NEGATIVE); NITRITE,URINE NEGATIVE (NEGATIVE); PH,URINE 5 (4.5-8.0); PROTEIN,URINE NEGATIVE (NEGATIVE); UROBILINOGEN,URINE NORMAL MG/DL (0.0-1.0)
[2017-07-16 17:09] LABS: BASOPHILS % (AUTO) 1.7 % (0.0-2.0); EOSINOPHILS % (AUTO) 0.6 % (0.0-3.0); HEMATOCRIT 46.8 % (37.0-47.0); HEMOGLOBIN 14.7 G/DL (12.0-16.0); LYMPHOCYTES % (AUTO) 39.7 % (20.0-45.0); MEAN CORPUSCULAR VOLUME 75 FL (80-99); MONOCYTES % (AUTO) 5.8 % (1.0-10.0); NEUTROPHILS % (AUTO) 52.3 % (45.0-75.0); PLATELET COUNT 150 K/UL (150-450); RED CELL DISTRIBUTION WIDTH 13.4 % (11.6-14.8); WHITE BLOOD COUNT 8.3 K/UL (4.8-10.8)
[2017-07-16 17:13] LABS: ANION GAP 3 mmol/L (5-15); BLOOD UREA NITROGEN 18 mg/dL (7-18); CALCIUM 9.2 MG/DL (8.5-10.1); CARBON DIOXIDE 33 MMOL/L (21-32); CHLORIDE 102 MMOL/L (98-107); POTASSIUM 3.9 MMOL/L (3.5-5.1); SODIUM 138 MMOL/L (136-145)
--- NOTE | 2017-07-16 17:14 | Diagnostic Imaging Report ---
Indication: Abdominal pain Technique: Spiral acquisitions obtained through the abdomen and pelvis. No oral contrast utilized, per emergency room physician request No IV contrast utilized, for emergency room physician request.. Multiplanar reconstructions were generated. Total dose length product 1070.89 mGycm. CTDIvol(s) 18.84 mGy. Dose reduction achieved using automated exposure control Comparison: Contrast study dated 12/05/2016 Findings: Lack of enteric contrast limits assessment of the GI tract. The appendix is normal. No evidence of diverticulosis or diverticulitis. No small bowel distention. No free or loculated intraperitoneal air or fluid. Distal esophagus, stomach, duodenum are unremarkable. Lack of IV contrast limits assessment of solid organs. The liver is diffusely hypoattenuating, consistent with fatty change, also evident previously. There is a calcification adjacent to the intrahepatic inferior vena cava. No other focal abnormality demonstrated. The gallbladder is nondistended. No biliary ductal dilatation. The pancreas, spleen, adrenals, kidneys are all unremarkable. No retroperitoneal or mesenteric mass or adenopathy. No pelvic mass or adenopathy. Uterus and adnexal structures are unremarkable. The bones are unremarkable. The included lung bases are clear. Previously demonstrated pericardial fluid is no longer evident. Previously demonstrated bladder wall thickening, mild bilateral hydronephrosis and hydroureter and periureteral fat stranding are no longer evident Impression: Limited assessment of the GI tract, given lack of enteric contrast administration No definite acute process demonstrated Fatty liver Previously demonstrated bladder, renal and ureteral inflammation is no longer evident Incidental finding of hepatic calcification, presumably on the basis of old inflammation The CT scanner at [facility] is accredited by the [employer] and the scans are performed using protocols designed to limit radiation exposure to as low as reasonably achievable to attain images of sufficient resolution adequate for diagnostic evaluation.
[2017-07-16 17:18] LABS: ALANINE AMINOTRANSFERASE 32 U/L (12-78); ALBUMIN 3.9 G/DL (3.4-5.0); ALKALINE PHOSPHATASE 61 U/L (46-116); ASPARTATE AMINO TRANSFERASE 14 U/L (15-37); BILIRUBIN,TOTAL 0.5 MG/DL (0.2-1.0)
[2017-07-16 17:45] VITALS: BP 128/82
== END | disposition home or self-care (01) ==
LOC: EMR 15:50
DX: R10.9 Unspecified abdominal pain (principal); I10 Essential (primary) hypertension; J45.909 Unspecified asthma, uncomplicated; E11.9 Type 2 diabetes mellitus without complications; F31.9 Bipolar disorder, unspecified; Z91.018 Allergy to other foods; Z88.6 Allergy status to analgesic agent; K76.0 Fatty (change of) liver, not elsewhere classified
CPT/HCPCS: 36415; 74176; 80053; 81003; 81025; 83690; 85025; 96374; 96375; 99284; J2270; J2405

== ENCOUNTER 2020-02-27 13:53 | Emergency (ER) | payer MEDICAID ==
[~2020-02-27] VITALS: Ht 170.2 cm; Wt 108.9 kg
[~2020-02-27 13:53] MED LIST changes: +JANUVIA25 MG ORAL; -Morphine Sulfate 4mg/ml Inj IVP ONE
[2020-02-27 15:00] VITALS: BP 120/73
--- NOTE | 2020-02-27 15:00 | NUR ---
ED Nurse Note: Pt walked into ED for L shoulder pain 11/09. Pt states she was doing pull ups and heard a crack. Pt is alert and orientedx4, ambulatory. No open wounds. ROM 1/5 L shoulder.
--- NOTE | 2020-02-27 15:32 | Emergency Room Report ---
History of Present Illness General Chief Complaint: Shoulder Injury Present Illness HPI 39-year-old female presents to the emergency department complaining of 6 out of 10 severity left-sided shoulder pain with acute onset after doing pull-ups 2 days ago. Patient reports no improvement of her symptoms at home with taking uuem-hyq-acuojgq pain medication. Patient denies paresthesias. She reports she is right-hand dominant. Patient reports that she heard a crack. Patient states pain with palpation or attempts to move her left arm. Patient denies pain in the elbow, forearm or hand. Patient denies previous shoulder injury. Patient denies neck or back pain. Patient with past medical history of high blood pressure diabetes and bipolar. No other aggravating or relieving factors at this time. Allergies: Coded Allergies: TOMATO (Verified Allergy, Severe, Anaphylaxis, 12/25/11) IBUPROFEN (Verified Allergy, Intermediate, 02/15/16) ACETAMINOPHEN (Verified Allergy, Unknown, hives, 07/16/17) GRASS POLLEN (Verified Allergy, Unknown, 08/29/16) COVID-19 Screening Contact w/high risk pt: No Experienced COVID-19 symptoms?: No COVID-19 Testing performed ACCESS TECH: No Patient History Past Medical History: see triage record, DM, HTN, psych hx Past Surgical History: none Pertinent Family History: none Last Menstrual Period: 01/26/2020 Now: No Reviewed Nursing Documentation: PMH: Agreed; PSxH: Agreed Nursing Documentation-PMH Hx Cardiac Problems: Yes Hx Hypertension: Yes Hx Pacemaker: No Hx Asthma: Yes Hx COPD: No Hx Diabetes: Yes - pt does not check BS at home but takes Januvia 25mg daily Hx Cancer: No Hx Gastrointestinal Problems: No Hx Dialysis: No Hx Neurological Problems: Yes - bipolar Hx Cerebrovascular Accident: No Hx Seizures: No Review of Systems All Other Systems: negative except mentioned in HPI Physical Exam Vital Signs Date Time Temp Pulse Resp B/P (MAP) Pulse Ox O2 Delivery O2 Flow Rate FiO2 02/27/20 14:33 97.9 99 20 118/75 (89) 95 Room Air Sp02 EP Interpretation: reviewed, normal General Appearance: no apparent distress, alert, GCS 15, non-toxic Head: normocephalic, atraumatic Eyes: bilateral eye normal inspection, bilateral eye PERRL ENT: hearing grossly normal, normal voice Neck: full range of motion Respiratory: chest non-tender, lungs clear, normal breath sounds, no wheezing, speaking full sentences Cardiovascular #1: regular rate, rhythm, normal capillary refill Cardiovascular #2: 2+ radial (R), 2+ radial (L) Musculoskeletal: back normal, normal range of motion, gait/station normal, tender - Tenderness to palpation to the anterior, lateral and posterior aspect of the left shoulder. No clicking or cracking with range of motion. Patient has significant pain upon range of motion exam and light touch. No swelling, bruises or obvious deformities. Patient is in NVI Neurologic: alert, motor strength/tone normal, oriented x3, sensory intact, responsive, speech normal, grossly normal, no focal defects Psychiatric: judgement/insight normal Skin: no rash, normal color Medical Decision Making PA Attestation Dr. Castillo is my supervising Physician whom patient management has been discussed with. Diagnostic Impression: Primary Impression: Injury of left shoulder Qualified Codes: S49.92XA - Unspecified injury of left shoulder and upper arm, initial encounter ER Course 39-year-old female presents to the emergency department complaining of 6 out of 10 severity left-sided shoulder pain with acute onset after doing pull-ups 2 days ago. Patient reports no improvement of her symptoms at home with taking cleo-aqu-akcvqgy pain medication. Patient denies paresthesias. She reports she is right-hand dominant. Patient reports that she heard a crack. Patient states pain with palpation or attempts to move her left arm. Patient denies pain in the elbow, forearm or hand. Patient denies previous shoulder injury. Patient denies neck or back pain. Patient with past medical history of high blood pressure diabetes and bipolar. No other aggravating or relieving factors at this time. Ddx considered but are not limited to Fracture, dislocation, contusion, Sprain/Strain/Spasm, Epidural abscess, Neoplastic mets. Vital signs: are WNL, pt. is afebrile H&PE are most consistent with musculoskeletal injury will perform imaging to r/o fractures/dislocations. ORDERS: - X-ray Left Shoulder - negative for fx, Dislocation, or significant soft tissue injury, per preliminary read in ED, and signed by ANY Sadler, my supervising physician has reviewed, and agrees with my interpretation. ED INTERVENTIONS: - Lidoderm TP -I do not identify an emergent condition at this time. With current presentation, pt. is stable for close outpatient follow up and conservative treatment. D/w pt. to return promptly to ED with worsening or new symptoms.- Pt. verbalizes' understanding and agreement with proposed treatment plan. Please note that upon discharge patient had additional question and she was noted to be using her left arm with full range of motion without grimacing. DISCHARGE: At this time pt. is stable for d/c to home. Will provide printed patient care instructions, and any necessary prescriptions. Care plan and follow up instructions have been discussed with the patient prior to discharge. Other X-Ray Diagnostic Results Other X-Ray Diagnostic Results : X-Ray ordered: Left Shoulder # of Views/Limited Vs Complete: 3 View Indication: Pain EP Interpretation: Yes PA Xray: Interpretation reviewed, by supervising MD, and agrees with findings. Interpretation: no dislocation, no soft tissue swelling, no fractures Impression: No acute disease Electronically Signed by: Jade Sadler PA-C Last Vital Signs Date Time Temp Pulse Resp B/P (MAP) Pulse Ox O2 Delivery O2 Flow Rate FiO2 02/27/20 15:00 97.9 85 17 120/73 96 Room Air Disposition: HOME, SELF-CARE Condition: Stable Scripts Lidocaine Patch* (Lidoderm Patch*) 1 Each Adh..patch 1 PATCH TOPIC DAILY, #30 PATCH 0 Refills Patch(es) may remain in place for up to 12 hours in any 24-hour period. Prov: Jade Sadler 02/27/20 Metaxalone (SKELAXIN) 800 Mg Tablet 800 MG PO TID, #21 TAB Prov: Jade Sadler 02/27/20 Patient Instructions: Shoulder Sprain, Shoulder Pain Additional Instructions: Take medications as directed. Do not drink alcohol, drive, or operate heavy machinery while taking ROBAXIN ( Muscle Relaxer ) as this may cause drowsiness. Follow up with an WATER CONTROL STATION ENGINEER in 3-5 days, even if your symptoms have resolved. If symptoms persist MRI may be required at the discretion of your PCP or Ortho Specialist. --Please review list of primary care clinics, if you do not already have a primary care provider who can give you an Orthopedic Referral. Return sooner to ED if new symptoms occur, or current symptoms become worse. - Please note that this Emergency Department Report was dictated using [employer] checker technology software, occasionally this can lead to erroneous entry secondary to interpretation by the dictation equipment. Jade Sadler Feb 27, 2020 15:32
[2020-02-27] MEDS ORDERED: LIDODERM700 M1 TOPIC (15:34)
[2020-02-27] MEDS ORDERED: SKELAXIN800 MG PO (15:34)
--- NOTE | 2020-02-27 15:43 | NUR ---
ER DISCHARGE NOTE: Patient is cleared to be discharged per ERMD, pt is aox4, on room air, with stable vital signs. pt was given dc and prescription instructions, pt was able to verbalize understanding, pt id band removed. pt is able to ambulate with steady gait. pt took all belongings.
[2020-02-27 15:44] VITALS: BP 127/76
--- NOTE | 2020-02-27 16:53 | Diagnostic Imaging Report ---
Indication: Left shoulder pain Technique: 3 views of the left shoulder Comparison: none Findings: No acute fracture. No dislocation. Joint spaces are preserved Impression: Negative
== END 2020-02-27 15:44 | disposition home or self-care (01) ==
LOC: EMR 15:20
DX: S49.92XA Unspecified injury of left shoulder and upper arm, initial encounter (principal); I11.9 Hypertensive heart disease without heart failure; J45.909 Unspecified asthma, uncomplicated; F31.9 Bipolar disorder, unspecified; Y93.B2 Activity, push-ups, pull-ups, sit-ups; Y92.9 Unspecified place or not applicable; Z88.6 Allergy status to analgesic agent; Z91.09 Other allergy status, other than to drugs and biological substances
CPT/HCPCS: 73030; Z7502; 99283

== ENCOUNTER 2020-04-16 01:08 | Emergency (ER) | payer MEDICAID ==
[~2020-04-16] VITALS: Ht 170.2 cm; Wt 108.9 kg
[~2020-04-16 01:08] MED LIST changes: +LIDODERM700 M1 TOPIC; +SKELAXIN800 MG PO
--- NOTE | 2020-04-16 01:14 | NUR ---
ED Nurse Note: PT brougth in by ambulance. SHe is from a independant living facility. SHe is co of 10/10 chest pain described as crushing pressure substernal. Per EMS they gave her ASA and nitro enroute without improvement. Her vitals are stable on RA
[2020-04-16 01:15] VITALS: BP 151/106
--- NOTE | 2020-04-16 01:23 | Emergency Room Report ---
History of Present Illness General Chief Complaint: Chest Pain Source: Patient, Medical Record, EMS Present Illness HPI This is a 39-year-old female with history of diabetes and high blood pressure. Also history of bipolar. She presents with chief plaint of chest pain. Onset was acute and occurred around midnight when she was trying to sleep. Pain is to her chest area. Pain is sharp in nature. Pain is 10 out of 10. No radiation. No nausea vomiting or diarrhea. No exertional component. She said she felt short of breath. She called 911. EMS gave her aspirin and nitroglycerin without any relief of her pain. Never had this problem before. Allergies: Coded Allergies: TOMATO (Verified Allergy, Severe, Anaphylaxis, 12/25/11) IBUPROFEN (Verified Allergy, Intermediate, 02/15/16) ACETAMINOPHEN (Verified Allergy, Unknown, hives, 07/16/17) GRASS POLLEN (Verified Allergy, Unknown, 08/29/16) COVID-19 Screening Contact w/high risk pt: No Experienced COVID-19 symptoms?: No COVID-19 Testing performed ELEVATING GRADER OPERATOR: No COVID-19 Screening: Negative COVID-19 Patient History Past Medical History: see triage record, old chart reviewed, DM, HTN, psych hx Past Surgical History: none Pertinent Family History: none Social History: Denies: smoking Now: No Immunizations: other Reviewed Nursing Documentation: PMH: Agreed; PSxH: Agreed Nursing Documentation-PMH Hx Cardiac Problems: Yes Hx Hypertension: Yes Hx Pacemaker: No Hx Asthma: Yes Hx COPD: No Hx Diabetes: Yes - pt does not check BS at home but takes Januvia 25mg daily Hx Cancer: No Hx Gastrointestinal Problems: No Hx Dialysis: No Hx Neurological Problems: Yes - bipolar Hx Cerebrovascular Accident: No Hx Seizures: No Review of Systems Eye: Denies: eye pain, blurred vision ENT: Denies: ear pain, nose congestion, throat swelling Respiratory: Denies: cough, shortness of breath Cardiovascular: Reports: chest pain; Denies: palpitations Gastrointestinal: Denies: abdominal pain, diarrhea, nausea, vomiting Musculoskeletal: Denies: back pain, joint pain Skin: Denies: rash Neurological: Denies: headache, numbness Endocrine: Denies: increased thirst, increased urine Hematologic/Lymphatic: Denies: easy bruising All Other Systems: negative except mentioned in HPI Physical Exam Vital Signs Date Time Temp Pulse Resp B/P (MAP) Pulse Ox O2 Delivery O2 Flow Rate FiO2 04/16/20 01:01 98.1 120 20 151/106 (121) 98 Room Air Vitals with high blood pressure and tachycardia Sp02 EP Interpretation: reviewed, normal General Appearance: well appearing, no apparent distress, alert, obese Head: normocephalic, atraumatic Eyes: bilateral eye PERRL, bilateral eye EOMI ENT: hearing grossly normal, normal pharynx Neck: full range of motion, supple, no meningismus Respiratory: chest non-tender, lungs clear, normal breath sounds Cardiovascular #1: regular rate, rhythm, no murmur, tachycardia Gastrointestinal: normal bowel sounds, non tender, no mass, no organomegaly, no bruit, non-distended Musculoskeletal: back normal, normal range of motion, gait/station normal Neurologic: alert, oriented x3 Psychiatric: anxious Medical Decision Making Diagnostic Impression: Primary Impression: Chest pain Qualified Codes: R07.9 - Chest pain, unspecified Additional Impressions: DM2 (diabetes mellitus, type 2) Qualified Codes: E11.9 - Type 2 diabetes mellitus without complications Pericardial effusion ER Course This patient presents with chest pain. No evidence of ACS, PE, dissection to name a few. She does have pericardial effusion. However there is no evidence of tamponade. Her cardiac silhouette has been unchanged from previous chest x- rays. Pain is well controlled now. Other differential include GI pathology such as reflux/gastritis. She may also have pericarditis. I do not hear any rub on exam. I gave her Toradol here and she has no reaction. Will discharge home. EKG Diagnostic Results Troponin ordered: Yes Rate: normal, tachycardiac Rhythm: NSR ST Segments: other - Right bundle branch block Rhythm Strip Diag. Results EP Interpretation: yes Rate: 118 Rhythm: NSR, no PVC's, no ectopy Chest X-Ray Diagnostic Results Chest X-Ray Diagnostic Results : Chest X-Ray Ordered: Yes # of Views/Limited/Complete: 1 View Indication: Chest Pain EP Interpretation: Yes Interpretation: no consolidation, no effusion, no pneumothorax, other - cm Impression: Other - cm Electronically Signed by: Valerio Man MD Last Vital Signs Date Time Temp Pulse Resp B/P (MAP) Pulse Ox O2 Delivery O2 Flow Rate FiO2 04/16/20 01:01 98.1 120 20 151/106 (121) 98 Room Air Status: improved Disposition: HOME, SELF-CARE Condition: Stable Scripts Hydrocodone/Acetaminophen 5-325* (HYDROCODONE/ACETAMINOPHEN 5-325*) 1 Each Tablet 1 TAB ORAL Q6H PRN for For Pain, #15 TAB 0 Refills Prov: Valerio Man MD 04/16/20 Patient Instructions: Nonspecific Chest Pain Additional Instructions: Follow-up with your doctor in 7 days. Return if symptoms worsen. Valerio Man MD Apr 16, 2020 01:23
[2020-04-16] MEDS ORDERED: HYDROmorphone 1mg/ml Carpuject IVP ONE ×2 (01:30→03:00)
[2020-04-16 01:34] LABS: EOSINOPHILS % (AUTO) 0.3 % (0.0-3.0); HEMATOCRIT 52.5 % (37.0-47.0); HEMOGLOBIN 16.1 G/DL (12.0-16.0); LYMPHOCYTES % (AUTO) 23.5 % (20.0-45.0); MEAN CORPUSCULAR VOLUME 77 FL (80-99); MONOCYTES % (AUTO) 7.3 % (1.0-10.0); NEUTROPHILS % (AUTO) 67.9 % (45.0-75.0); PLATELET COUNT 206 K/UL (150-450); RED BLOOD COUNT 6.84 M/UL (4.20-5.40); RED CELL DISTRIBUTION WIDTH 13.6 % (11.6-14.8); WHITE BLOOD COUNT 12.1 K/UL (4.8-10.8)
[2020-04-16 01:56] LABS: ALANINE AMINOTRANSFERASE 15 U/L (12-78); ALBUMIN 3.8 G/DL (3.4-5.0); ALBUMIN/GLOBULIN RATIO 0.8 (1.0-2.7); ALKALINE PHOSPHATASE 72 U/L (46-116); ANION GAP 5 mmol/L (5-15); ASPARTATE AMINO TRANSFERASE 5 U/L (15-37); BILIRUBIN,TOTAL 0.4 MG/DL (0.2-1.0); BLOOD UREA NITROGEN 18 mg/dL (7-18); CALCIUM 9.5 MG/DL (8.5-10.1); CARBON DIOXIDE 32 MMOL/L (21-32); CHLORIDE 101 MMOL/L (98-107); CREATININE 1.2 MG/DL (0.55-1.30); SODIUM 138 MMOL/L (136-145)
[2020-04-16 01:57] LABS: APPEARANCE,URINE CLEAR; BILIRUBIN, URINE NEGATIVE (NEGATIVE); COLOR,URINE PALE YELLOW; GLUCOSE, URINE (UA) 4+ (NEGATIVE); KETONES,URINE 1+ (NEGATIVE); LEUKOCYTE ESTERASE ,URINE 2+ (NEGATIVE); NITRITE,URINE NEGATIVE (NEGATIVE); PH,URINE 5 (4.5-8.0); PROTEIN,URINE NEGATIVE (NEGATIVE); UROBILINOGEN,URINE NORMAL MG/DL (0.0-1.0)
--- NOTE | 2020-04-16 02:00 | NUR ---
ED Nurse Note: Pt is able to walk with a steady gait to the bathroom, she can follow commands, she speaks in full sentances.
[2020-04-16] MEDS ORDERED: Omnipaque 350 100ml vial INJ PRN (02:15)
--- NOTE | 2020-04-16 03:09 | Diagnostic Imaging Report ---
EXAM: CT Angiography Chest With Intravenous Contrast CLINICAL HISTORY: CP TECHNIQUE: Axial computed tomographic angiography images of the chest with intravenous contrast. CTDI is 51.30 mGy and DLP is 483.10 mGy-cm. One or more of the following dose reduction techniques were used: automated exposure control, adjustment of the mA and/or kV according to patient size, use of iterative reconstruction technique. MIP reconstructed images were created and reviewed. COMPARISON: No relevant prior studies available. FINDINGS: No acute pulmonary embolism. Moderate pericardial effusion. Cardiomegaly. No focal consolidation, pleural effusion, or pneumothorax. Mild scarring/atelectasis at the lung bases. Subtle superimposed infiltrate would be difficult to exclude however, felt to be less likely. Normal thyroid gland. No pathologically enlarged mediastinal or hilar lymph nodes. Hepatic steatosis. Degenerative changes of the spine. IMPRESSION: No acute pulmonary embolism. Moderate pericardial effusion. Cardiomegaly. No focal consolidation, pleural effusion, or pneumothorax. Mild scarring/atelectasis at the lung bases. Subtle superimposed infiltrate would be difficult to exclude however, felt to be less likely.
[2020-04-16] MEDS ORDERED: Ketorolac 30mg Inj IV ONE (03:30)
[2020-04-16 03:32] VITALS: BP 141/92
--- NOTE | 2020-04-16 03:44 | NUR ---
ED Nurse Note: PT has unlabored, even respirations. Eyes are closed. No signs of distress noted.
--- NOTE | 2020-04-16 04:00 | NUR ---
Attempt to contact [facility] [phone], the message divers to statistical programmer analyst Ofelia [phone]. Left message for Ofelia to call us back to conform the patients residence anf is there someone to receive her.
[2020-04-16] MEDS ORDERED: HYDROCODON-ACE1 EA15 ORAL (05:09)
[2020-04-16 07:30] VITALS: BP 142/93
--- NOTE | 2020-04-16 07:31 | NUR ---
ER DISCHARGE NOTE: Patient is cleared to be discharged per ERMD, pt is aox4, on room air, with stable vital signs. pt was given dc and prescription instructions, pt was able to verbalize understanding, pt id band and iv site removed without complications. pt is able to ambulate with steady gait. pt took all belongings. Pt left in a cab witha taxi voucher
--- NOTE | 2020-04-16 14:51 | Diagnostic Imaging Report ---
Indication: Chest pain Technique: One view of the chest Comparison: 12/05/2017 Findings: Body habitus limits evaluation. Inspiration is suboptimal. The heart is enlarged, also previously demonstrated. There is equivocal mild interstitial congestion, not evident previously. No focal airspace consolidation. Pleural spaces are clear Impression: Cardiomegaly. Equivocal mild interstitial congestion. Correlate with clinical findings
== END 2020-04-16 07:32 | disposition home or self-care (01) ==
LOC: EDBD 01:08 → EMR 01:29
DX: R07.9 Chest pain, unspecified (principal); I31.3 Pericardial effusion (noninflammatory); E11.9 Type 2 diabetes mellitus without complications; J45.909 Unspecified asthma, uncomplicated; E11.8 Type 2 diabetes mellitus with unspecified complications; I11.9 Hypertensive heart disease without heart failure; Z88.6 Allergy status to analgesic agent; Z91.018 Allergy to other foods; Z91.09 Other allergy status, other than to drugs and biological substances; Z79.84 Long term (current) use of oral hypoglycemic drugs; Z79.899 Other long term (current) drug therapy
CPT/HCPCS: 36415; 71045; 71275; 80053; 80307; 81003; 81025; 83690; 83880; 84484; 85025; 85379; 86140; 93005; 96361; 96374; 96375; 96376; J1170; J1885; J7030; Q9967; U0002; Z7502; 99284